=== PATIENT | female | born 1995 | race Caucasian/White ===

== ENCOUNTER 2017-07-28 00:44 | Emergency (ER) | payer SELFPAY ==
[~2017-07-28] VITALS: Ht 170.2 cm; Wt 88.0 kg
[2017-07-28 00:50] VITALS: BP 135/64
[2017-07-28 02:50] LABS: Urine Bilirubin Negative (Negative); Urine Blood Negative /uL (Negative); Urine Color Yellow (Yellow); Urine Glucose Normal (Normal); Urine Ketone 2+ (Negative); Urine Mucus FEW (None Seen); Urine Nitrite Negative (Negative); Urine RBC 2 /hpf (0 - 4); Urine Squamous Epithelial Cell FEW /hpf (<5); Urine pH 6.5 (5.0-8.0)
== END 2017-07-28 03:35 | disposition home or self-care (01) ==
LOC: EDBD 00:44 → ER 00:48
DX: S16.1XXA Strain of muscle, fascia and tendon at neck level, initial encounter (principal); S00.83XA Contusion of other part of head, initial encounter; S00.03XA Contusion of scalp, initial encounter; N39.0 Urinary tract infection, site not specified; Z32.01 Encounter for pregnancy test, result positive; Y08.89XA Assault by other specified means, initial encounter; Y93.89 Activity, other specified; Y99.8 Other external cause status; Y92.89 Other specified places as the place of occurrence of the external cause
CPT/HCPCS: 81001; 81025

== ENCOUNTER 2018-01-21 00:44 | Emergency (ER) | payer MEDICAID ==
[~2018-01-21] VITALS: Ht 157.5 cm; Wt 77.1 kg
[2018-01-21 02:05] LABS: Basophils # (auto) 0 uL; Basophils % (auto) 0.3 % (0.0-2.0); Eosinophils # (auto) 0.1 uL; Eosinophils % (auto) 0.7 % (0.0-7.0); Hematocrit 33.7 % (36.0-46.0); Hemoglobin 11.6 g/dL (12.2-16.2); Lymphocytes # (auto) 1.4 uL; Lymphocytes % (auto) 19.6 % (10.0-50.0); Mean Corpuscular Hemoglobin 31.6 pg (28.0-32.0); Mean Corpuscular Hgb Conc. 34.3 g/dL (32.0-36.0); Mean Corpuscular Volume 92.2 fL (80.0-100.0); Monocytes # (auto) 0.7 uL; Monocytes % (auto) 10.1 % (0.0-12.0); Neutrophils # (auto) 4.9 uL; Neutrophils % (auto) 69.3 % (37.0-80.0); Platelet Count (auto) 234 10^3/uL (140-450); Red Blood Cells 3.66 10^6/uL (4.0-5.20); Red Cell Distribution Width 13.7 % (11.8-14.3); White Blood Cell 7.1 10^3/uL (4.4-10.8)
[2018-01-21 02:40] LABS: Alanine Aminotransferase 13 U/L (13-56); Albumin 2.8 g/dL (3.4-5.0); Anion Gap 7 (5-15); Aspartate Aminotransferase 16 U/L (15-37); BUN/Creatinine Ratio 6.4; Blood Urea Nitrogen 3 mg/dL (7-18); Calcium 8.1 mg/dL (8.5-10.1); Carbon Dioxide 25 mmol/L (21-32); Chloride 108 mmol/L (98-107); GFR African American 217 mL/min; GFR Non-African American 180 mL/min; Glucose 86 mg/dL (74-106); Potassium 3.7 mmol/L (3.5-5.1); Sodium 140 mmol/L (136-145)
[2018-01-21 02:45] LABS: Alkaline Phosphatase 89 U/L (45-117); Bilirubin, Total 0.2 mg/dL (0.2-1.0); Total Protein 6.5 g/dL (6.4-8.2)
[2018-01-21 09:42] VITALS: BP 111/34
== END 2018-01-21 09:08 | disposition home or self-care (01) ==
LOC: EDBD 00:44 → ER 00:44 → EDUNIT# 00:44 → ER 09:08
DX: O26.893 Other specified pregnancy related conditions, third trimester (principal); R07.89 Other chest pain; Z3A.31 31 weeks gestation of pregnancy
CPT/HCPCS: 36415; 76805; 80053; 83735; 84484; 84702; 85025; 93005

== ENCOUNTER 2018-02-20 23:48 | Emergency (ER) | payer MEDICAID ==
[~2018-02-20] VITALS: Ht 165.1 cm; Wt 77.1 kg
[2018-02-21 00:44] LABS: Basophils # (auto) 0 uL; Basophils % (auto) 0.1 % (0.0-2.0); Eosinophils # (auto) 0.1 uL; Eosinophils % (auto) 0.7 % (0.0-7.0); Hematocrit 32.4 % (36.0-46.0); Hemoglobin 11.2 g/dL (12.2-16.2); Lymphocytes # (auto) 1.4 uL; Lymphocytes % (auto) 19.6 % (10.0-50.0); Mean Corpuscular Hemoglobin 31.4 pg (28.0-32.0); Mean Corpuscular Hgb Conc. 34.6 g/dL (32.0-36.0); Mean Corpuscular Volume 90.8 fL (80.0-100.0); Monocytes # (auto) 0.8 uL; Monocytes % (auto) 11.3 % (0.0-12.0); Neutrophils % (auto) 68.3 % (37.0-80.0); Platelet Count (auto) 209 10^3/uL (140-450); Red Blood Cells 3.57 10^6/uL (4.0-5.20); Red Cell Distribution Width 13.6 % (11.8-14.3); White Blood Cell 7.3 10^3/uL (4.4-10.8)
[2018-02-21 01:01] LABS: Alanine Aminotransferase 13 U/L (13-56); Albumin 2.6 g/dL (3.4-5.0); Anion Gap 11 (5-15); Aspartate Aminotransferase 12 U/L (15-37); BUN/Creatinine Ratio 8.9; Blood Urea Nitrogen 4 mg/dL (7-18); Calcium 8.6 mg/dL (8.5-10.1); Carbon Dioxide 22 mmol/L (21-32); Chloride 105 mmol/L (98-107); GFR African American 228 mL/min; GFR Non-African American 189 mL/min; Glucose 92 mg/dL (74-106); Potassium 3.6 mmol/L (3.5-5.1); Sodium 138 mmol/L (136-145)
[2018-02-21 01:06] LABS: Alkaline Phosphatase 126 U/L (45-117); Bilirubin, Total 0.3 mg/dL (0.2-1.0); Total Protein 6.3 g/dL (6.4-8.2)
[2018-02-21 01:41] LABS: Urine Bacteria FEW /hpf (None Seen); Urine Blood Negative /uL (Negative); Urine Mucus FEW (None Seen); Urine Specific Gravity 1.007 (1.001-1.035); Urine WBC 1 /hpf (0 - 5)
[2018-02-21 01:50] LABS: Alcohol, Urine < 3.0 mg/dL (0-5); Amphetamine Screen, Urine NEGATIVE (NEGATIVE); Barbiturate Scree,Urine NEGATIVE (NEGATIVE); Benzodiazephine Screen, Urine NEGATIVE (NEGATIVE); Cocaine Screen, Urine NEGATIVE (NEGATIVE); Opiate Scree,Urine NEGATIVE (NEGATIVE); Phencyclidine Screen, Urine NEGATIVE (NEGATIVE)
[2018-02-21 02:43] LABS: Cannabinoid Screen, Urine POSITIVE (NEGATIVE)
[2018-02-21 07:12] VITALS: BP 109/59
== END 2018-02-21 11:26 | disposition home or self-care (01) ==
LOC: EDBD 23:48 → ER 23:53
DX: K80.20 Calculus of gallbladder without cholecystitis without obstruction (principal); O26.613 Liver and biliary tract disorders in pregnancy, third trimester; O99.613 Diseases of the digestive system complicating pregnancy, third trimester; O26.893 Other specified pregnancy related conditions, third trimester; K29.70 Gastritis, unspecified, without bleeding; F12.10 Cannabis abuse, uncomplicated; Z3A.34 34 weeks gestation of pregnancy
CPT/HCPCS: 36415; 76705; 76805; 80053; 80307; 81001; 84484; 84702; 85025; 93005

== ENCOUNTER 2018-03-16 05:03 | Observation (INO) | payer MEDICAID | END 2018-03-16 15:00 | disposition home or self-care (01) | DRG 566 | LOC: EDSTATUS 05:03 | PROVIDERS: ADMIT Obstetrics & Gynecology; ATTEND Obstetrics & Gynecology | DX: O26.893 Other specified pregnancy related conditions, third trimester (principal); R10.9 Unspecified abdominal pain; Z3A.36 36 weeks gestation of pregnancy | CPT/HCPCS: 59025; G0378 ==

== ENCOUNTER 2018-03-21 01:53 | Observation (INO) | payer MEDICAID ==
[~2018-03-21] VITALS: Ht 170.2 cm; Wt 88.0 kg
[2018-03-21] MEDS ORDERED: PREN-96 PO (04:15)
== END 2018-03-21 03:00 | disposition home or self-care (01) | DRG 566 ==
LOC: LDRP 01:53
PROVIDERS: ADMIT Obstetrics & Gynecology; ATTEND Obstetrics & Gynecology
DX: O26.893 Other specified pregnancy related conditions, third trimester (principal); M54.9 Dorsalgia, unspecified; Z3A.38 38 weeks gestation of pregnancy
CPT/HCPCS: 59025; G0378

== ENCOUNTER 2018-04-11 08:34 | Emergency (ER) | payer MEDICAID, OTHER ==
[~2018-04-11] VITALS: Ht 167.6 cm; Wt 97.5 kg
[2018-04-11] MEDS ORDERED: SODIUM CHLORIDE 0.9% 1,000 ML IVB ONE (09:02)
[2018-04-11 09:22] LABS: Basophils # (auto) 0.1 uL; Basophils % (auto) 0.8 % (0.0-2.0); Eosinophils # (auto) 0.2 uL; Eosinophils % (auto) 2.8 % (0.0-7.0); Hematocrit 39.1 % (36.0-46.0); Hemoglobin 13.4 g/dL (12.2-16.2); Lymphocytes # (auto) 1.7 uL; Lymphocytes % (auto) 25.6 % (10.0-50.0); Mean Corpuscular Hemoglobin 30.2 pg (28.0-32.0); Mean Corpuscular Hgb Conc. 34.3 g/dL (32.0-36.0); Monocytes # (auto) 0.8 uL; Monocytes % (auto) 12.5 % (0.0-12.0); Neutrophils # (auto) 3.9 uL; Neutrophils % (auto) 58.3 % (37.0-80.0); Nucleated Red Blood Cells % 0.1 %; Platelet Count (auto) 289 10^3/uL (140-450); Red Blood Cells 4.44 10^6/uL (4.0-5.20); Red Cell Distribution Width 13.7 % (11.8-14.3); White Blood Cell 6.6 10^3/uL (4.4-10.8)
[2018-04-11 09:40] LABS: Alanine Aminotransferase 31 U/L (13-56); Albumin 3.4 g/dL (3.4-5.0); Alkaline Phosphatase 129 U/L (45-117); Anion Gap 9 (5-15); Aspartate Aminotransferase 16 U/L (15-37); BUN/Creatinine Ratio 10.7; Bilirubin, Total 0.3 mg/dL (0.2-1.0); Blood Urea Nitrogen 8 mg/dL (7-18); Calcium 8.2 mg/dL (8.5-10.1); Carbon Dioxide 26 mmol/L (21-32); Chloride 104 mmol/L (98-107); GFR African American 127 mL/min; GFR Non-African American 105 mL/min; Glucose 78 mg/dL (74-106); Magnesium 2.4 mg/dL (1.6-2.6); Potassium 3.7 mmol/L (3.5-5.1); Sodium 139 mmol/L (136-145); Total Protein 7.2 g/dL (6.4-8.2)
[2018-04-11 09:46] LABS: Beta HCG, Quantitative < 1 mlU/mL (1-3)
[2018-04-11 10:46] LABS: Lipase 110 U/L (73-393)
[2018-04-11 16:16] LABS: Urine Bacteria NONE SEEN /hpf (None Seen); Urine Blood TRACE /uL (Negative); Urine Specific Gravity 1.009 (1.001-1.035); Urine WBC 14 /hpf (0 - 5)
[2018-04-11] MEDS ORDERED: cefTRIAXone 1GM/10ml IVPUSH 10 ML IV ONE (17:00)
[2018-04-11 18:00] VITALS: BP 116/66
== END 2018-04-11 18:05 | disposition home or self-care (01) ==
LOC: ER 08:34 → EDBD 08:34 → ER 18:05
DX: N39.0 Urinary tract infection, site not specified (principal); R53.1 Weakness
CPT/HCPCS: 36415; 74176; 76536; 80053; 81001; 83690; 83735; 84443; 84484; 84702; 85025; 93005; 94761; 96361; 96374; 99285; J7030

== ENCOUNTER 2018-04-11 22:43 | Emergency (ER) | payer OTHER ==
[~2018-04-11] VITALS: Ht 170.2 cm; Wt 90.7 kg
[2018-04-11 23:02] VITALS: BP 106/54
[2018-04-12] MEDS ORDERED: diphenhdrAMINE HCL 25 MG CAP PO ONE (00:30)
[2018-04-12] MEDS ORDERED: KETOROLAC TROMETH 60MG/2ML VIAL IM ONE (00:30)
[2018-04-12] MEDS ORDERED: PROMETHAZINE HCL 25 MG/ML 1ML IM ONE (00:30)
== END 2018-04-12 01:57 | disposition home or self-care (01) ==
LOC: ER 22:44
DX: R51 Headache (principal)
CPT/HCPCS: 70450

== ENCOUNTER 2018-05-12 09:09 | Emergency (ER) | payer MEDICAID, OTHER ==
[~2018-05-12] VITALS: Ht 167.6 cm; Wt 93.9 kg
[2018-05-12 09:53] LABS: Basophils # (auto) 0 uL; Basophils % (auto) 0.5 % (0.0-2.0); Eosinophils # (auto) 0.1 uL; Eosinophils % (auto) 1.4 % (0.0-7.0); Hematocrit 38.7 % (36.0-46.0); Hemoglobin 13.4 g/dL (12.2-16.2); Lymphocytes # (auto) 0.9 uL; Lymphocytes % (auto) 24.2 % (10.0-50.0); Mean Corpuscular Hemoglobin 30.6 pg (28.0-32.0); Mean Corpuscular Hgb Conc. 34.7 g/dL (32.0-36.0); Mean Corpuscular Volume 88.2 fL (80.0-100.0); Monocytes # (auto) 0.4 uL; Monocytes % (auto) 10.4 % (0.0-12.0); Neutrophils # (auto) 2.4 uL; Neutrophils % (auto) 63.5 % (37.0-80.0); Platelet Count (auto) 240 10^3/uL (140-450); Red Blood Cells 4.39 10^6/uL (4.0-5.20); Red Cell Distribution Width 13.9 % (11.8-14.3); White Blood Cell 3.8 10^3/uL (4.4-10.8)
[2018-05-12 10:03] VITALS: BP 152/64
[2018-05-12 10:14] LABS: Albumin 3.9 g/dL (3.4-5.0); BUN/Creatinine Ratio 4.7; Calcium 8.2 mg/dL (8.5-10.1); Potassium 3.2 mmol/L (3.5-5.1); Total Protein 7.2 g/dL (6.4-8.2)
[2018-05-12 10:15] LABS: Urine Pregnacy Test Negative (Negative)
[2018-05-12 10:26] LABS: Urine Bacteria FEW /hpf (None Seen); Urine Blood Negative /uL (Negative); Urine Mucus FEW (None Seen); Urine Specific Gravity 1.013 (1.001-1.035); Urine WBC 2 /hpf (0 - 5)
[2018-05-12 10:28] LABS: Alcohol, Urine < 3.0 mg/dL (0-5); Amphetamine Screen, Urine NEGATIVE (NEGATIVE); Barbiturate Scree,Urine NEGATIVE (NEGATIVE); Benzodiazephine Screen, Urine NEGATIVE (NEGATIVE); Cannabinoid Screen, Urine NEGATIVE (NEGATIVE); Cocaine Screen, Urine NEGATIVE (NEGATIVE); Opiate Scree,Urine NEGATIVE (NEGATIVE); Phencyclidine Screen, Urine NEGATIVE (NEGATIVE)
[2018-05-12] MEDS ORDERED: DONNATAL 5ml ORAL Elix (BELLADONNA ALK-PHENOBARB) PO ONE (10:30)
[2018-05-12] MEDS ORDERED: ALUM & MAG HYDROX-SIMETH LIQ(MAALOX) 30 ML PO ONE (10:30)
[2018-05-12] MEDS ORDERED: LIDOCAINE VISCOUS 2% 15ML UD PO ONE (10:30)
== END 2018-05-12 12:04 | disposition home or self-care (01) ==
LOC: ER 09:12
DX: R10.13 Epigastric pain (principal); R11.2 Nausea with vomiting, unspecified; R19.7 Diarrhea, unspecified
CPT/HCPCS: 36415; 80053; 80307; 81001; 81025; 85025

== ENCOUNTER 2018-05-18 03:47 | Emergency (ER) | payer MEDICAID, OTHER ==
[~2018-05-18] VITALS: Ht 177.8 cm; Wt 99.8 kg
[2018-05-18 03:57] VITALS: BP 127/81
[2018-05-18 04:19] LABS: Basophils # (auto) 0 uL; Basophils % (auto) 0.5 % (0.0-2.0); Eosinophils # (auto) 0.1 uL; Eosinophils % (auto) 2.4 % (0.0-7.0); Hematocrit 36.5 % (36.0-46.0); Hemoglobin 12.5 g/dL (12.2-16.2); Lymphocytes # (auto) 1.6 uL; Lymphocytes % (auto) 37.3 % (10.0-50.0); Mean Corpuscular Hemoglobin 30.3 pg (28.0-32.0); Mean Corpuscular Hgb Conc. 34.3 g/dL (32.0-36.0); Mean Corpuscular Volume 88.4 fL (80.0-100.0); Monocytes # (auto) 0.7 uL; Monocytes % (auto) 15.7 % (0.0-12.0); Neutrophils # (auto) 1.9 uL; Neutrophils % (auto) 44.1 % (37.0-80.0); Nucleated Red Blood Cells % 0.1 %; Platelet Count (auto) 214 10^3/uL (140-450); Red Blood Cells 4.13 10^6/uL (4.0-5.20); Red Cell Distribution Width 13.6 % (11.8-14.3); White Blood Cell 4.3 10^3/uL (4.4-10.8)
[2018-05-18 04:48] LABS: Albumin 3.5 g/dL (3.4-5.0); BUN/Creatinine Ratio 4.5; Potassium 3.2 mmol/L (3.5-5.1); Total Protein 6.4 g/dL (6.4-8.2)
[2018-05-18 04:54] LABS: Bilirubin, Total 1.1 mg/dL (0.2-1.0)
[2018-05-18] MEDS ORDERED: POTASSIUM EFFERVESENT TAB 25 MEQ PO ONE (05:45)
== END 2018-05-18 06:09 | disposition home or self-care (01) ==
LOC: EDBD 03:47 → ER 03:51
DX: E87.6 Hypokalemia (principal)
CPT/HCPCS: 36415; 80053; 82150; 83690; 84702; 85025

== ENCOUNTER 2018-05-23 02:27 | Emergency (ER) | payer MEDICAID, OTHER ==
[~2018-05-23] VITALS: Ht 165.1 cm; Wt 92.5 kg
[2018-05-23] MEDS ORDERED: SODIUM CHLORIDE 0.9% 1,000 ML IV ONE (08:04)
[2018-05-23] MEDS ORDERED: KETOROLAC TROMETH 30 MG/ML 1ML VIAL IV ONE (08:15)
[2018-05-23 08:23] LABS: Urine WBC None Seen /hpf (0 - 5)
[2018-05-23 08:34] LABS: Urine Bacteria NONE SEEN /hpf (None Seen); Urine Blood Negative /uL (Negative); Urine Specific Gravity 1.009 (1.001-1.035)
[2018-05-23 08:35] LABS: Basophils # (auto) 0 uL; Basophils % (auto) 0.7 % (0.0-2.0); Eosinophils # (auto) 0.1 uL; Eosinophils % (auto) 2.4 % (0.0-7.0); Hematocrit 38.4 % (36.0-46.0); Hemoglobin 12.8 g/dL (12.2-16.2); Lymphocytes # (auto) 1.5 uL; Mean Corpuscular Hemoglobin 29.2 pg (28.0-32.0); Mean Corpuscular Hgb Conc. 33.3 g/dL (32.0-36.0); Mean Corpuscular Volume 87.7 fL (80.0-100.0); Monocytes # (auto) 0.6 uL; Monocytes % (auto) 13.8 % (0.0-12.0); Neutrophils # (auto) 2.2 uL; Neutrophils % (auto) 50.1 % (37.0-80.0); Nucleated Red Blood Cells % 0.1 %; Platelet Count (auto) 210 10^3/uL (140-450); Red Blood Cells 4.38 10^6/uL (4.0-5.20); Red Cell Distribution Width 13.7 % (11.8-14.3); White Blood Cell 4.4 10^3/uL (4.4-10.8)
[2018-05-23 08:53] LABS: BUN/Creatinine Ratio 9.6; Calcium 8.3 mg/dL (8.5-10.1); Potassium 3.4 mmol/L (3.5-5.1)
[2018-05-23 10:07] VITALS: BP 133/77
== END 2018-05-23 11:31 | disposition home or self-care (01) ==
LOC: ER 02:27
DX: M62.838 Other muscle spasm (principal); M54.9 Dorsalgia, unspecified; E87.6 Hypokalemia
CPT/HCPCS: 36415; 80048; 81001; 83735; 84702; 85025; 96374; 99284; J1885; J7030; 96361

== ENCOUNTER 2018-05-25 01:16 | Emergency (ER) | payer MEDICAID, OTHER ==
[~2018-05-25] VITALS: Ht 172.7 cm; Wt 99.8 kg
[2018-05-25 08:00] VITALS: BP 123/61
== END 2018-05-25 08:00 | disposition home or self-care (01) ==
LOC: EDBD 01:16 → ER 01:22
DX: K29.70 Gastritis, unspecified, without bleeding (principal)

== ENCOUNTER 2018-06-26 09:12 | Emergency (ER) | payer MEDICAID ==
[~2018-06-26] VITALS: Ht 167.6 cm; Wt 90.7 kg
[2018-06-26 09:35] VITALS: BP 122/74
[2018-06-26] MEDS ORDERED: NALBUPHINE HCL 10 MG/1ml INJECTION IM ONE (10:00)
== END 2018-06-26 10:40 | disposition home or self-care (01) ==
LOC: EDBD 09:12 → EDUNIT# 09:12 → ER 09:12
DX: S39.012A Strain of muscle, fascia and tendon of lower back, initial encounter (principal); Y08.89XA Assault by other specified means, initial encounter; Y93.89 Activity, other specified; Y92.89 Other specified places as the place of occurrence of the external cause; Y99.8 Other external cause status
CPT/HCPCS: 72100; 81025; 96372; 99284; J2300

== ENCOUNTER 2018-06-26 21:39 | Emergency (ER) | payer MEDICAID ==
[~2018-06-26] VITALS: Ht 170.2 cm; Wt 81.6 kg
[2018-06-26 22:00] VITALS: BP 120/85
== END 2018-06-27 05:11 | disposition left against medical advice (07) ==
LOC: EDBD 21:39 → ER 21:39
DX: F32.9 Major depressive disorder, single episode, unspecified (principal); Z53.21 Procedure and treatment not carried out due to patient leaving prior to being seen by health care provider

== ENCOUNTER 2018-06-27 19:50 | Emergency (ER) | payer MEDICAID ==
[~2018-06-27] VITALS: Ht 167.6 cm; Wt 92.5 kg
[2018-06-27 20:59] LABS: Urine Bacteria NONE SEEN /hpf (None Seen); Urine Blood Negative /uL (Negative); Urine Specific Gravity 1.001 (1.001-1.035); Urine WBC <1 /hpf (0 - 5)
[2018-06-27 21:08] LABS: Basophils # (auto) 0 uL; Basophils % (auto) 0.7 % (0.0-2.0); Eosinophils # (auto) 0.1 uL; Eosinophils % (auto) 2.5 % (0.0-7.0); Hematocrit 37.1 % (36.0-46.0); Hemoglobin 12.5 g/dL (12.2-16.2); Lymphocytes # (auto) 1.6 uL; Lymphocytes % (auto) 35.5 % (10.0-50.0); Mean Corpuscular Hemoglobin 29.9 pg (28.0-32.0); Mean Corpuscular Hgb Conc. 33.6 g/dL (32.0-36.0); Monocytes # (auto) 0.6 uL; Monocytes % (auto) 12.7 % (0.0-12.0); Neutrophils # (auto) 2.2 uL; Neutrophils % (auto) 48.6 % (37.0-80.0); Nucleated Red Blood Cells % 0.2 %; Platelet Count (auto) 235 10^3/uL (140-450); Red Blood Cells 4.18 10^6/uL (4.0-5.20); Red Cell Distribution Width 13.4 % (11.8-14.3); White Blood Cell 4.6 10^3/uL (4.4-10.8)
[2018-06-27 21:25] LABS: Albumin 3.6 g/dL (3.4-5.0); BUN/Creatinine Ratio 5.6; Bilirubin, Total 0.7 mg/dL (0.2-1.0); Calcium 8.6 mg/dL (8.5-10.1); Potassium 3.4 mmol/L (3.5-5.1)
[2018-06-28 06:30] VITALS: BP 101/59
[2018-06-28] MEDS ORDERED: POTASSIUM EFFERVESENT TAB 25 MEQ PO ONE (06:45)
== END 2018-06-28 06:59 | disposition home or self-care (01) ==
LOC: ER 19:50
DX: E87.6 Hypokalemia (principal); Z59.0 Homelessness
CPT/HCPCS: 36415; 80053; 81001; 81025; 82150; 83690; 83735; 85025

== ENCOUNTER 2018-07-03 08:14 | Emergency (ER) | payer MEDICAID ==
[~2018-07-03] VITALS: Ht 167.6 cm; Wt 90.3 kg
[2018-07-03 08:32] VITALS: BP 120/69
== END 2018-07-03 09:09 | disposition home or self-care (01) ==
LOC: ER 08:14
DX: N39.0 Urinary tract infection, site not specified (principal); Z59.0 Homelessness

== ENCOUNTER 2018-07-11 19:42 | Emergency (ER) | payer MEDICAID ==
[~2018-07-11] VITALS: Ht 170.2 cm; Wt 90.3 kg
[2018-07-11 19:57] VITALS: BP 111/55
[2018-07-11 20:08] LABS: Urine WBC None Seen /hpf (0 - 5)
[2018-07-11 20:22] LABS: Urine Bacteria NONE SEEN /hpf (None Seen); Urine Blood Negative /uL (Negative); Urine Pregnacy Test Negative (Negative); Urine Specific Gravity 1.002 (1.001-1.035)
[2018-07-11 20:33] LABS: Alcohol, Urine < 3.0 mg/dL (0-5); Amphetamine Screen, Urine NEGATIVE (NEGATIVE); Barbiturate Scree,Urine NEGATIVE (NEGATIVE); Benzodiazephine Screen, Urine NEGATIVE (NEGATIVE); Cannabinoid Screen, Urine NEGATIVE (NEGATIVE); Cocaine Screen, Urine NEGATIVE (NEGATIVE); Opiate Scree,Urine NEGATIVE (NEGATIVE); Phencyclidine Screen, Urine NEGATIVE (NEGATIVE)
[2018-07-11] MEDS ORDERED: methylPREDNISolone SOD SUCC 125 MG/2 ML VL IM ONE (21:15)
[2018-07-11] MEDS ORDERED: KETOROLAC TROMETH 60MG/2ML VIAL IM ONE (21:15)
== END 2018-07-11 22:21 | disposition home or self-care (01) ==
LOC: ER 19:42
DX: S23.3XXA Sprain of ligaments of thoracic spine, initial encounter (principal); W01.0XXA Fall on same level from slipping, tripping and stumbling without subsequent striking against object, initial encounter; Y93.89 Activity, other specified; Y99.8 Other external cause status; Y92.89 Other specified places as the place of occurrence of the external cause
CPT/HCPCS: 72100; 80307; 81001; 81025; 96372; 99285; J1885; J2930

== ENCOUNTER 2018-07-21 22:16 | Emergency (ER) | payer MEDICAID ==
[~2018-07-21] VITALS: Ht 162.6 cm; Wt 72.6 kg
[2018-07-22 00:50] VITALS: BP 122/42
[2018-07-22] MEDS: MECLIZINE HCL 25 MG TAB PO ONE (01:21)
== END 2018-07-22 01:57 | disposition home or self-care (01) ==
LOC: EDBD 22:16 → ER 22:22
DX: R42 Dizziness and giddiness (principal); R53.1 Weakness
CPT/HCPCS: 99282; J8597

== ENCOUNTER 2018-08-08 23:39 | Emergency (ER) | payer MEDICAID ==
[~2018-08-08] VITALS: Ht 157.5 cm; Wt 95.3 kg
[2018-08-08 23:48] VITALS: BP 124/80
== END 2018-08-09 05:31 | disposition home or self-care (01) ==
LOC: ER 23:39 → EDBD 23:39 → ER 08-09 05:31
DX: S43.402A Unspecified sprain of left shoulder joint, initial encounter (principal); W22.8XXA Striking against or struck by other objects, initial encounter; Y93.89 Activity, other specified; Y99.8 Other external cause status; Y92.89 Other specified places as the place of occurrence of the external cause
CPT/HCPCS: 73030

== ENCOUNTER 2018-08-16 21:46 | Emergency (ER) | payer MEDICAID ==
[~2018-08-16] VITALS: Ht 157.5 cm; Wt 90.7 kg
[2018-08-16 21:58] VITALS: BP 136/82
[2018-08-16 22:21] LABS: Basophils # (auto) 0 uL; Basophils % (auto) 0.3 % (0.0-2.0); Eosinophils # (auto) 0.1 uL; Eosinophils % (auto) 1.4 % (0.0-7.0); Hemoglobin 13.4 g/dL (12.2-16.2); Lymphocytes # (auto) 1.7 uL; Lymphocytes % (auto) 24.3 % (10.0-50.0); Mean Corpuscular Hemoglobin 29.3 pg (28.0-32.0); Mean Corpuscular Hgb Conc. 33.4 g/dL (32.0-36.0); Mean Corpuscular Volume 87.9 fL (80.0-100.0); Monocytes # (auto) 0.6 uL; Neutrophils # (auto) 4.6 uL; Platelet Count (auto) 263 10^3/uL (140-450); Red Blood Cells 4.56 10^6/uL (4.0-5.20); Red Cell Distribution Width 13.5 % (11.8-14.3); White Blood Cell 7.1 10^3/uL (4.4-10.8)
[2018-08-16 22:41] LABS: Albumin 3.9 g/dL (3.4-5.0); BUN/Creatinine Ratio 8.1; Calcium 8.4 mg/dL (8.5-10.1); Potassium 3.6 mmol/L (3.5-5.1)
[2018-08-16 22:43] LABS: Bilirubin, Total 0.6 mg/dL (0.2-1.0); Total Protein 7.6 g/dL (6.4-8.2)
== END 2018-08-17 | disposition left against medical advice (07) ==
LOC: EDBD 21:46 → ER 21:46
DX: R06.02 Shortness of breath (principal); Z53.21 Procedure and treatment not carried out due to patient leaving prior to being seen by health care provider
CPT/HCPCS: 36415; 71046; 80053; 85025

== ENCOUNTER 2018-08-30 01:39 | Emergency (ER) | payer MEDICAID ==
[~2018-08-30] VITALS: Ht 167.6 cm; Wt 77.1 kg
[2018-08-30 01:45] VITALS: BP 115/76
== END 2018-08-30 03:55 | disposition home or self-care (01) ==
LOC: EDBD 01:39 → ER 01:46
DX: M54.9 Dorsalgia, unspecified (principal); M62.838 Other muscle spasm

== ENCOUNTER 2018-09-12 22:56 | Emergency (ER) | payer MEDICAID ==
[~2018-09-12] VITALS: Ht 165.1 cm; Wt 81.6 kg
[2018-09-12 23:03] VITALS: BP 112/58
[2018-09-13 00:01] LABS: Urine Bacteria MANY /hpf (None Seen); Urine Blood Negative /uL (Negative); Urine Mucus FEW (None Seen); Urine Specific Gravity 1.022 (1.001-1.035); Urine WBC 40 /hpf (0 - 5)
[2018-09-13 01:33] LABS: Basophils # (auto) 0 uL; Basophils % (auto) 0.4 % (0.0-2.0); Eosinophils # (auto) 0.1 uL; Eosinophils % (auto) 2.3 % (0.0-7.0); Hematocrit 37.2 % (36.0-46.0); Hemoglobin 12.3 g/dL (12.2-16.2); Lymphocytes # (auto) 2.1 uL; Mean Corpuscular Hemoglobin 29.1 pg (28.0-32.0); Mean Corpuscular Hgb Conc. 33.2 g/dL (32.0-36.0); Mean Corpuscular Volume 87.8 fL (80.0-100.0); Monocytes # (auto) 0.6 uL; Monocytes % (auto) 11.1 % (0.0-12.0); Neutrophils # (auto) 2.9 uL; Neutrophils % (auto) 50.2 % (37.0-80.0); Nucleated Red Blood Cells % 0.1 %; Platelet Count (auto) 258 10^3/uL (140-450); Red Blood Cells 4.24 10^6/uL (4.0-5.20); Red Cell Distribution Width 14.1 % (11.8-14.3); White Blood Cell 5.8 10^3/uL (4.4-10.8)
[2018-09-13 01:52] LABS: Albumin 3.4 g/dL (3.4-5.0); BUN/Creatinine Ratio 12.5; Calcium 7.9 mg/dL (8.5-10.1); Potassium 3.9 mmol/L (3.5-5.1)
[2018-09-13 01:55] LABS: Alcohol, Urine < 3.0 mg/dL (0-5); Amphetamine Screen, Urine NEGATIVE (NEGATIVE); Barbiturate Scree,Urine NEGATIVE (NEGATIVE); Benzodiazephine Screen, Urine NEGATIVE (NEGATIVE); Cannabinoid Screen, Urine POSITIVE (NEGATIVE); Cocaine Screen, Urine NEGATIVE (NEGATIVE); Opiate Scree,Urine NEGATIVE (NEGATIVE); Phencyclidine Screen, Urine NEGATIVE (NEGATIVE)
[2018-09-13 01:55] LABS: Bilirubin, Total 0.4 mg/dL (0.2-1.0); Total Protein 6.7 g/dL (6.4-8.2)
[2018-09-13] MEDS ORDERED: SODIUM CHLORIDE 0.9% 1,000 ML IV ONE (02:45)
== END 2018-09-13 04:49 | disposition home or self-care (01) ==
LOC: EDBD 22:56 → ER 23:01
DX: O23.41 Unspecified infection of urinary tract in pregnancy, first trimester (principal); O21.9 Vomiting of pregnancy, unspecified; N83.01 Follicular cyst of right ovary; N83.02 Follicular cyst of left ovary; Z3A.00 Weeks of gestation of pregnancy not specified
CPT/HCPCS: 36415; 76801; 80053; 80307; 81001; 81025; 84702; 85025; 96360; 99284; J7030

== ENCOUNTER 2018-09-18 15:33 | Emergency (ER) | payer MEDICAID ==
[~2018-09-18] VITALS: Ht 170.2 cm; Wt 72.6 kg
[2018-09-18 16:18] LABS: Basophils # (auto) 0 uL; Basophils % (auto) 0.4 % (0.0-2.0); Eosinophils # (auto) 0.1 uL; Eosinophils % (auto) 0.9 % (0.0-7.0); Hematocrit 36.7 % (36.0-46.0); Hemoglobin 12.5 g/dL (12.2-16.2); Lymphocytes # (auto) 1.4 uL; Lymphocytes % (auto) 23.5 % (10.0-50.0); Mean Corpuscular Hgb Conc. 33.9 g/dL (32.0-36.0); Mean Corpuscular Volume 88.4 fL (80.0-100.0); Monocytes # (auto) 0.7 uL; Monocytes % (auto) 11.3 % (0.0-12.0); Neutrophils # (auto) 3.9 uL; Neutrophils % (auto) 63.9 % (37.0-80.0); Nucleated Red Blood Cells % 0.1 %; Platelet Count (auto) 242 10^3/uL (140-450); Red Blood Cells 4.16 10^6/uL (4.0-5.20); Red Cell Distribution Width 14.3 % (11.8-14.3)
[2018-09-18 16:40] LABS: Albumin 3.6 g/dL (3.4-5.0); BUN/Creatinine Ratio 10.3; Calcium 8.3 mg/dL (8.5-10.1); Potassium 4.1 mmol/L (3.5-5.1)
[2018-09-18 16:43] LABS: Bilirubin, Total 0.3 mg/dL (0.2-1.0); Total Protein 6.8 g/dL (6.4-8.2)
[2018-09-18] MEDS ORDERED: ONDANSETRON HCL 4 MG/2 ML VIAL IV ONE (23:30)
[2018-09-18] MEDS ORDERED: SODIUM CHLORIDE 0.9% 1,000 ML IV ONE (23:30)
[2018-09-19 00:21] VITALS: BP 88/54
== END 2018-09-19 00:57 | disposition home or self-care (01) ==
LOC: EDBD 15:33 → ER 15:38
DX: O21.0 Mild hyperemesis gravidarum (principal); Z3A.01 Less than 8 weeks gestation of pregnancy
CPT/HCPCS: 36415; 80053; 81025; 84702; 85025; 96361; 96374; 99283; J2405; J7030

== ENCOUNTER 2018-09-19 02:26 | Emergency (ER) | payer MEDICAID ==
[~2018-09-19] VITALS: Ht 170.2 cm; Wt 81.6 kg
[2018-09-19 03:02] LABS: Basophils # (auto) 0 uL; Basophils % (auto) 0.6 % (0.0-2.0); Eosinophils # (auto) 0.1 uL; Eosinophils % (auto) 1.7 % (0.0-7.0); Hematocrit 36.7 % (36.0-46.0); Hemoglobin 12.3 g/dL (12.2-16.2); Lymphocytes % (auto) 33.9 % (10.0-50.0); Mean Corpuscular Hemoglobin 29.7 pg (28.0-32.0); Mean Corpuscular Hgb Conc. 33.5 g/dL (32.0-36.0); Mean Corpuscular Volume 88.8 fL (80.0-100.0); Monocytes # (auto) 0.7 uL; Monocytes % (auto) 12.3 % (0.0-12.0); Neutrophils % (auto) 51.5 % (37.0-80.0); Nucleated Red Blood Cells % 0.1 %; Platelet Count (auto) 234 10^3/uL (140-450); Red Blood Cells 4.13 10^6/uL (4.0-5.20); Red Cell Distribution Width 14.5 % (11.8-14.3); White Blood Cell 5.8 10^3/uL (4.4-10.8)
[2018-09-19 03:18] LABS: Alanine Aminotransferase 26 U/L (13-56); Albumin 3.3 g/dL (3.4-5.0); Anion Gap 9 (5-15); Aspartate Aminotransferase 12 U/L (15-37); BUN/Creatinine Ratio 11.1; Blood Alcohol < 3.0 mg/dL (0-5); Blood Urea Nitrogen 8 mg/dL (7-18); Calcium 7.7 mg/dL (8.5-10.1); Carbon Dioxide 20 mmol/L (21-32); Chloride 110 mmol/L (98-107); GFR African American 132 mL/min; GFR Non-African American 109 mL/min; Glucose 89 mg/dL (74-106); Potassium 3.9 mmol/L (3.5-5.1); Sodium 139 mmol/L (136-145)
[2018-09-19 03:20] LABS: Acetaminophen < 2.0 ug/mL (10-30); Salicylate < 1.7 mg/dL (2.8-20.0)
[2018-09-19 03:21] LABS: Alkaline Phosphatase 87 U/L (45-117); Bilirubin, Total 0.2 mg/dL (0.2-1.0); Total Protein 6.4 g/dL (6.4-8.2)
[2018-09-19 06:31] LABS: Urine Bacteria NONE SEEN /hpf (None Seen); Urine Blood Negative /uL (Negative); Urine Mucus FEW (None Seen); Urine Specific Gravity 1.012 (1.001-1.035); Urine WBC 1 /hpf (0 - 5)
[2018-09-19 07:09] LABS: Alcohol, Urine < 3.0 mg/dL (0-5); Amphetamine Screen, Urine NEGATIVE (NEGATIVE); Barbiturate Scree,Urine NEGATIVE (NEGATIVE); Benzodiazephine Screen, Urine NEGATIVE (NEGATIVE); Cannabinoid Screen, Urine NEGATIVE (NEGATIVE); Cocaine Screen, Urine NEGATIVE (NEGATIVE); Opiate Scree,Urine NEGATIVE (NEGATIVE); Phencyclidine Screen, Urine NEGATIVE (NEGATIVE)
[2018-09-19 11:27] VITALS: BP 103/41
== END 2018-09-19 11:50 | disposition short-term general hospital (02) ==
LOC: ER 02:26
DX: O99.341 Other mental disorders complicating pregnancy, first trimester (principal); F32.9 Major depressive disorder, single episode, unspecified; R45.851 Suicidal ideations; Z3A.01 Less than 8 weeks gestation of pregnancy
CPT/HCPCS: 36415; 80053; 80307; 80320; 80329; 81001; 85025; 93005

== ENCOUNTER 2018-09-27 03:22 | Emergency (ER) | payer MEDICAID ==
[~2018-09-27] VITALS: Ht 167.6 cm; Wt 77.1 kg
[2018-09-27 07:38] VITALS: BP 108/65
== END 2018-09-27 09:23 | disposition home or self-care (01) ==
LOC: EDBD 03:22 → ER 03:29
DX: O26.891 Other specified pregnancy related conditions, first trimester (principal); R10.13 Epigastric pain; Z3A.01 Less than 8 weeks gestation of pregnancy
CPT/HCPCS: 36415; 84702

== ENCOUNTER 2018-10-04 23:56 | Emergency (ER) | payer MEDICAID ==
[~2018-10-04] VITALS: Ht 167.6 cm; Wt 59.0 kg
[2018-10-05 02:11] LABS: Basophils # (auto) 0 uL; Basophils % (auto) 0.4 % (0.0-2.0); Eosinophils # (auto) 0.1 uL; Eosinophils % (auto) 1.3 % (0.0-7.0); Hematocrit 37.4 % (36.0-46.0); Hemoglobin 12.6 g/dL (12.2-16.2); Lymphocytes # (auto) 1.6 uL; Lymphocytes % (auto) 25.6 % (10.0-50.0); Mean Corpuscular Hgb Conc. 33.6 g/dL (32.0-36.0); Mean Corpuscular Volume 89.2 fL (80.0-100.0); Monocytes # (auto) 0.6 uL; Monocytes % (auto) 9.6 % (0.0-12.0); Neutrophils % (auto) 63.1 % (37.0-80.0); Platelet Count (auto) 234 10^3/uL (140-450); Red Blood Cells 4.19 10^6/uL (4.0-5.20); Red Cell Distribution Width 14.4 % (11.8-14.3); White Blood Cell 6.3 10^3/uL (4.4-10.8)
[2018-10-05 02:32] LABS: Albumin 3.6 g/dL (3.4-5.0); BUN/Creatinine Ratio 15.5; Calcium 8.1 mg/dL (8.5-10.1); Potassium 3.9 mmol/L (3.5-5.1)
[2018-10-05 02:35] LABS: Bilirubin, Total 0.3 mg/dL (0.2-1.0); Total Protein 7.1 g/dL (6.4-8.2)
[2018-10-05 02:38] LABS: Urine Bacteria FEW /hpf (None Seen); Urine Blood 2+ /uL (Negative); Urine Mucus FEW (None Seen); Urine Specific Gravity 1.024 (1.001-1.035); Urine WBC 2 /hpf (0 - 5)
[2018-10-05 12:07] VITALS: BP 109/65
== END 2018-10-05 15:48 | disposition left against medical advice (07) ==
LOC: ER 23:59
DX: O20.0 Threatened abortion (principal); O21.9 Vomiting of pregnancy, unspecified; Z3A.19 19 weeks gestation of pregnancy
CPT/HCPCS: 36415; 76801; 76817; 80053; 81001; 84702; 85025

== ENCOUNTER 2018-10-12 01:52 | Emergency (ER) | payer MEDICAID ==
[~2018-10-12] VITALS: Ht 175.3 cm; Wt 81.6 kg
[2018-10-12 02:27] VITALS: BP 112/63
[2018-10-12 12:29] LABS: Basophils # (auto) 0 uL; Basophils % (auto) 0.5 % (0.0-2.0); Eosinophils # (auto) 0.1 uL; Eosinophils % (auto) 1.8 % (0.0-7.0); Hematocrit 38.5 % (36.0-46.0); Hemoglobin 12.8 g/dL (12.2-16.2); Lymphocytes # (auto) 1.1 uL; Lymphocytes % (auto) 23.1 % (10.0-50.0); Mean Corpuscular Hgb Conc. 33.3 g/dL (32.0-36.0); Mean Corpuscular Volume 90.1 fL (80.0-100.0); Monocytes # (auto) 0.5 uL; Monocytes % (auto) 10.1 % (0.0-12.0); Neutrophils # (auto) 3.2 uL; Neutrophils % (auto) 64.5 % (37.0-80.0); Platelet Count (auto) 269 10^3/uL (140-450); Red Blood Cells 4.27 10^6/uL (4.0-5.20); Red Cell Distribution Width 14.1 % (11.8-14.3)
[2018-10-12 13:06] LABS: BUN/Creatinine Ratio 8.8; Calcium 8.8 mg/dL (8.5-10.1); Potassium 3.9 mmol/L (3.5-5.1)
[2018-10-12 13:09] LABS: Bilirubin, Total 0.6 mg/dL (0.2-1.0); Total Protein 7.9 g/dL (6.4-8.2)
[2018-10-12] MEDS ORDERED: LACT. RINGERS/OXYTOCIN 20UNITS 1,000 ML IV ONE (14:30)
== END 2018-10-12 14:42 | disposition left against medical advice (07) ==
LOC: EDBD 01:52 → ER 02:02
DX: O03.9 Complete or unspecified spontaneous abortion without complication (principal); Z3A.00 Weeks of gestation of pregnancy not specified
CPT/HCPCS: 36415; 76801; 76817; 80053; 84702; 85025; 99284; J2590

== ENCOUNTER 2018-10-12 20:30 | Emergency (ER) | payer MEDICAID ==
[~2018-10-12] VITALS: Ht 170.2 cm; Wt 86.2 kg
[2018-10-12 20:40] VITALS: BP 109/61
== END 2018-10-13 01:48 | disposition left against medical advice (07) ==
LOC: EDBD 20:30 → ER 20:38
DX: N93.9 Abnormal uterine and vaginal bleeding, unspecified (principal); Z53.21 Procedure and treatment not carried out due to patient leaving prior to being seen by health care provider

== ENCOUNTER 2018-11-14 00:02 | Emergency (ER) | payer MEDICAID ==
[~2018-11-14] VITALS: Ht 170.2 cm; Wt 81.6 kg
[2018-11-14 00:30] VITALS: BP 108/67
[2018-11-14 01:26] LABS: Basophils # (auto) 0 uL; Basophils % (auto) 0.3 % (0.0-2.0); Eosinophils # (auto) 0.1 uL; Eosinophils % (auto) 0.9 % (0.0-7.0); Hematocrit 39.6 % (36.0-46.0); Hemoglobin 13.6 g/dL (12.2-16.2); Lymphocytes # (auto) 1.6 uL; Lymphocytes % (auto) 18.8 % (10.0-50.0); Mean Corpuscular Hemoglobin 30.3 pg (28.0-32.0); Mean Corpuscular Hgb Conc. 34.4 g/dL (32.0-36.0); Mean Corpuscular Volume 88.2 fL (80.0-100.0); Monocytes # (auto) 0.8 uL; Monocytes % (auto) 10.2 % (0.0-12.0); Neutrophils # (auto) 5.8 uL; Neutrophils % (auto) 69.8 % (37.0-80.0); Platelet Count (auto) 234 10^3/uL (140-450); Red Blood Cells 4.48 10^6/uL (4.0-5.20); Red Cell Distribution Width 13.9 % (11.8-14.3); White Blood Cell 8.3 10^3/uL (4.4-10.8)
[2018-11-14 01:43] LABS: Albumin 4.3 g/dL (3.4-5.0); BUN/Creatinine Ratio 14.9; Calcium 8.5 mg/dL (8.5-10.1); Potassium 3.9 mmol/L (3.5-5.1)
[2018-11-14 01:46] LABS: Bilirubin, Total 0.8 mg/dL (0.2-1.0); Total Protein 7.7 g/dL (6.4-8.2)
[2018-11-14] MEDS ORDERED: SODIUM CHLORIDE 0.9% 1,000 ML IVB ONE (06:27)
[2018-11-14] MEDS ORDERED: PROCHLORPERAZINE EDISYLATE 5 MG/ML 2ML VIAL IV ONE (06:30)
[2018-11-14 06:51] LABS: Magnesium 2.1 mg/dL (1.6-2.6)
== END 2018-11-14 07:03 | disposition left against medical advice (07) ==
LOC: ER 00:05
DX: R11.2 Nausea with vomiting, unspecified (principal); Z53.21 Procedure and treatment not carried out due to patient leaving prior to being seen by health care provider
CPT/HCPCS: 36415; 80053; 83690; 83735; 85025

== ENCOUNTER 2018-12-15 02:31 | Emergency (ER) | payer MEDICAID ==
[~2018-12-15] VITALS: Ht 167.6 cm; Wt 64.9 kg
[2018-12-15 07:45] VITALS: BP 110/66
[2018-12-15] MEDS: KETOROLAC TROMETH 60MG/2ML VIAL IM ONE (08:40)
== END 2018-12-15 09:40 | disposition home or self-care (01) ==
LOC: ER 02:36
DX: M54.6 Pain in thoracic spine (principal); M25.512 Pain in left shoulder; Z59.0 Homelessness; Y07.11 Biological father, perpetrator of maltreatment and neglect
CPT/HCPCS: 72070; 81025; 96372; 99283; J1885

== ENCOUNTER 2019-01-09 23:49 | Emergency (ER) | payer MEDICAID ==
[~2019-01-09] VITALS: Ht 170.2 cm; Wt 81.6 kg
[2019-01-09 23:58] VITALS: BP 110/57
[2019-01-10] MEDS ORDERED: TRIAMCINOLONE 40MG/ML 1ML VIAL IM ONE (03:15)
[2019-01-10 03:26] LABS: Urine Bacteria FEW /hpf (None Seen); Urine Blood Negative /uL (Negative); Urine Mucus FEW (None Seen); Urine Specific Gravity 1.024 (1.001-1.035); Urine WBC 1 /hpf (0 - 5)
[2019-01-10 03:42] LABS: Alcohol, Urine < 3.0 mg/dL (0-5); Amphetamine Screen, Urine NEGATIVE (NEGATIVE); Barbiturate Scree,Urine NEGATIVE (NEGATIVE); Benzodiazephine Screen, Urine NEGATIVE (NEGATIVE); Cannabinoid Screen, Urine POSITIVE (NEGATIVE); Cocaine Screen, Urine NEGATIVE (NEGATIVE); Opiate Scree,Urine NEGATIVE (NEGATIVE); Phencyclidine Screen, Urine NEGATIVE (NEGATIVE)
== END 2019-01-10 03:29 | disposition home or self-care (01) ==
LOC: ER 23:54
DX: O99.89 Other specified diseases and conditions complicating pregnancy, childbirth and the puerperium (principal); M54.5 Low back pain; Z3A.00 Weeks of gestation of pregnancy not specified
CPT/HCPCS: 80307; 81001; 81002; 81025

== ENCOUNTER 2019-01-11 01:28 | Emergency (ER) | payer MEDICAID ==
[~2019-01-11] VITALS: Ht 175.3 cm; Wt 72.6 kg
[2019-01-11 01:40] VITALS: BP 91/48
[2019-01-11 01:56] LABS: Basophils # (auto) 0 uL; Basophils % (auto) 0.6 % (0.0-2.0); Eosinophils # (auto) 0.1 uL; Hematocrit 34.1 % (36.0-46.0); Hemoglobin 11.5 g/dL (12.2-16.2); Lymphocytes # (auto) 1.6 uL; Lymphocytes % (auto) 21.6 % (10.0-50.0); Mean Corpuscular Hemoglobin 30.5 pg (28.0-32.0); Mean Corpuscular Hgb Conc. 33.7 g/dL (32.0-36.0); Mean Corpuscular Volume 90.5 fL (80.0-100.0); Monocytes # (auto) 0.9 uL; Neutrophils # (auto) 4.6 uL; Neutrophils % (auto) 64.8 % (37.0-80.0); Nucleated Red Blood Cells % 0.1 %; Platelet Count (auto) 212 10^3/uL (140-450); Red Blood Cells 3.77 10^6/uL (4.0-5.20); Red Cell Distribution Width 14.6 % (11.8-14.3); White Blood Cell 7.2 10^3/uL (4.4-10.8)
[2019-01-11 02:12] LABS: INR 1.02 (0.9-1.15); Partial Thromboplastin Time 28.2 sec (23.78-33.04); Prothrombin Time 10.9 sec (9.27-12.13)
[2019-01-11 02:15] LABS: BUN/Creatinine Ratio 14.5; Calcium 7.5 mg/dL (8.5-10.1); Potassium 3.7 mmol/L (3.5-5.1)
[2019-01-11 02:17] LABS: Bilirubin, Total 0.2 mg/dL (0.2-1.0); Total Protein 5.9 g/dL (6.4-8.2)
[2019-01-11] MEDS ORDERED: FOLIC ACID 1 MG TAB PO ONE (07:15)
== END 2019-01-11 09:21 | disposition home or self-care (01) ==
LOC: EDBD 01:28 → ER 01:33
DX: O46.91 Antepartum hemorrhage, unspecified, first trimester (principal); Z3A.01 Less than 8 weeks gestation of pregnancy
CPT/HCPCS: 36415; 76801; 80053; 84702; 85025; 85610; 85730

== ENCOUNTER 2019-01-11 23:17 | Emergency (ER) | payer MEDICAID ==
[~2019-01-11] VITALS: Ht 170.2 cm; Wt 81.6 kg
[2019-01-12 03:54] LABS: Basophils # (auto) 0 uL; Basophils % (auto) 0.4 % (0.0-2.0); Eosinophils # (auto) 0.1 uL; Eosinophils % (auto) 1.4 % (0.0-7.0); Hemoglobin 12.1 g/dL (12.2-16.2); Lymphocytes # (auto) 1.7 uL; Mean Corpuscular Hgb Conc. 34.5 g/dL (32.0-36.0); Mean Corpuscular Volume 89.9 fL (80.0-100.0); Monocytes # (auto) 0.6 uL; Monocytes % (auto) 8.8 % (0.0-12.0); Neutrophils # (auto) 4.1 uL; Neutrophils % (auto) 63.4 % (37.0-80.0); Platelet Count (auto) 223 10^3/uL (140-450); Red Cell Distribution Width 14.3 % (11.8-14.3); White Blood Cell 6.5 10^3/uL (4.4-10.8)
[2019-01-12 04:07] LABS: Urine Bacteria NONE SEEN /hpf (None Seen); Urine Blood Negative /uL (Negative); Urine Mucus FEW (None Seen); Urine Specific Gravity 1.014 (1.001-1.035); Urine WBC 1 /hpf (0 - 5)
[2019-01-12 04:17] LABS: Albumin 3.5 g/dL (3.4-5.0); BUN/Creatinine Ratio 7.7; Calcium 8.3 mg/dL (8.5-10.1); Magnesium 1.9 mg/dL (1.6-2.6); Potassium 3.7 mmol/L (3.5-5.1)
[2019-01-12 04:20] LABS: Bilirubin, Total 0.7 mg/dL (0.2-1.0); Total Protein 6.7 g/dL (6.4-8.2)
[2019-01-12] MEDS ORDERED: SODIUM CHLORIDE 0.9% 1,000 ML IVB ONE (07:55)
[2019-01-12] MEDS ORDERED: PROMETHAZINE HCL 25 MG/ML 1ML IV ONE (08:00)
[2019-01-12 10:14] VITALS: BP 108/56
== END 2019-01-12 10:31 | disposition home or self-care (01) ==
LOC: ER 23:19
DX: O46.91 Antepartum hemorrhage, unspecified, first trimester (principal); O21.0 Mild hyperemesis gravidarum; Z3A.01 Less than 8 weeks gestation of pregnancy
CPT/HCPCS: 36415; 80053; 81001; 81025; 83735; 84702; 85025; 94761; 96361; 96374; 99283; J2550; J7030

== ENCOUNTER 2019-01-18 06:24 | Emergency (ER) | payer MEDICAID ==
[~2019-01-18] VITALS: Ht 170.2 cm; Wt 77.1 kg
[2019-01-18 07:29] VITALS: BP 117/28
[2019-01-18 07:56] LABS: Basophils # (auto) 0 uL; Basophils % (auto) 0.2 % (0.0-2.0); Eosinophils # (auto) 0 uL; Eosinophils % (auto) 0.3 % (0.0-7.0); Hematocrit 37.6 % (36.0-46.0); Hemoglobin 12.7 g/dL (12.2-16.2); Lymphocytes # (auto) 1.5 uL; Lymphocytes % (auto) 18.3 % (10.0-50.0); Mean Corpuscular Hemoglobin 30.1 pg (28.0-32.0); Mean Corpuscular Hgb Conc. 33.6 g/dL (32.0-36.0); Mean Corpuscular Volume 89.7 fL (80.0-100.0); Monocytes # (auto) 0.7 uL; Monocytes % (auto) 8.3 % (0.0-12.0); Neutrophils # (auto) 5.9 uL; Neutrophils % (auto) 72.9 % (37.0-80.0); Nucleated Red Blood Cells % 0.1 %; Platelet Count (auto) 243 10^3/uL (140-450); Red Cell Distribution Width 14.4 % (11.8-14.3)
[2019-01-18 08:14] LABS: INR 0.98 (0.9-1.15); Partial Thromboplastin Time 27.7 sec (23.78-33.04); Prothrombin Time 10.5 sec (9.27-12.13)
[2019-01-18 08:21] LABS: Albumin 3.7 g/dL (3.4-5.0); Calcium 7.9 mg/dL (8.5-10.1); Potassium 3.5 mmol/L (3.5-5.1)
[2019-01-18 08:23] LABS: BUN/Creatinine Ratio 10.9
[2019-01-18 08:25] LABS: Bilirubin, Total 0.4 mg/dL (0.2-1.0); Total Protein 7.2 g/dL (6.4-8.2)
[2019-01-18] MEDS ORDERED: ONDANSETRON ODT 4 MG TAB PO ONE (08:30)
[2019-01-18 09:05] LABS: Urine Bacteria FEW /hpf (None Seen); Urine Blood Negative /uL (Negative); Urine Mucus FEW (None Seen); Urine Specific Gravity 1.022 (1.001-1.035); Urine WBC 2 /hpf (0 - 5)
== END 2019-01-18 09:14 | disposition home or self-care (01) ==
LOC: ER 06:24 → EDBD 06:24 → ER 09:14
DX: O21.8 Other vomiting complicating pregnancy (principal); O26.891 Other specified pregnancy related conditions, first trimester; R10.30 Lower abdominal pain, unspecified; Z3A.13 13 weeks gestation of pregnancy
CPT/HCPCS: 36415; 80053; 81001; 82150; 83690; 84702; 85025; 85610; 85730; 99283; Q0162

== ENCOUNTER 2019-01-22 14:02 | Emergency (ER) | payer MEDICAID ==
[~2019-01-22] VITALS: Ht 167.6 cm; Wt 86.2 kg
[2019-01-22 14:18] VITALS: BP 104/61
[2019-01-22 15:11] LABS: Urine Bacteria NONE SEEN /hpf (None Seen); Urine Blood Negative /uL (Negative); Urine Mucus FEW (None Seen); Urine Specific Gravity 1.024 (1.001-1.035); Urine WBC 3 /hpf (0 - 5)
[2019-01-22 15:42] LABS: Alcohol, Urine < 3.0 mg/dL (0-5); Amphetamine Screen, Urine NEGATIVE (NEGATIVE); Barbiturate Scree,Urine NEGATIVE (NEGATIVE); Benzodiazephine Screen, Urine NEGATIVE (NEGATIVE); Cannabinoid Screen, Urine POSITIVE (NEGATIVE); Cocaine Screen, Urine NEGATIVE (NEGATIVE); Opiate Scree,Urine NEGATIVE (NEGATIVE); Phencyclidine Screen, Urine NEGATIVE (NEGATIVE)
== END 2019-01-22 17:28 | disposition home or self-care (01) ==
LOC: ER 14:02
DX: O23.41 Unspecified infection of urinary tract in pregnancy, first trimester (principal); Z3A.08 8 weeks gestation of pregnancy
CPT/HCPCS: 76801; 80307; 81001; 82962

== ENCOUNTER 2019-01-28 23:36 | Emergency (ER) | payer MEDICAID ==
[~2019-01-28] VITALS: Ht 152.4 cm; Wt 63.5 kg
[2019-01-29 00:45] LABS: Basophils # (auto) 0 uL; Basophils % (auto) 0.5 % (0.0-2.0); Eosinophils # (auto) 0.1 uL; Eosinophils % (auto) 1.3 % (0.0-7.0); Hematocrit 36.1 % (36.0-46.0); Hemoglobin 12.2 g/dL (12.2-16.2); Lymphocytes # (auto) 1.3 uL; Lymphocytes % (auto) 21.7 % (10.0-50.0); Mean Corpuscular Hemoglobin 30.6 pg (28.0-32.0); Mean Corpuscular Hgb Conc. 33.9 g/dL (32.0-36.0); Mean Corpuscular Volume 90.2 fL (80.0-100.0); Monocytes # (auto) 0.7 uL; Monocytes % (auto) 12.5 % (0.0-12.0); Neutrophils # (auto) 3.8 uL; Nucleated Red Blood Cells % 0.2 %; Platelet Count (auto) 228 10^3/uL (140-450); Red Cell Distribution Width 14.3 % (11.8-14.3)
[2019-01-29 00:57] VITALS: BP 112/82
[2019-01-29 00:57] LABS: Chloride 105 mmol/L (98-107); Potassium 3.4 mmol/L (3.5-5.1); Sodium 136 mmol/L (136-145)
[2019-01-29 00:59] LABS: Albumin 3.4 g/dL (3.4-5.0); Anion Gap 8 (5-15); Blood Urea Nitrogen 7 mg/dL (7-18); Calcium 8.3 mg/dL (8.5-10.1); Carbon Dioxide 23 mmol/L (21-32); Glucose 83 mg/dL (74-106)
[2019-01-29 01:00] LABS: Blood Alcohol < 3.0 mg/dL (0-5)
[2019-01-29 01:02] LABS: Alanine Aminotransferase 13 U/L (13-56); Aspartate Aminotransferase 9 U/L (15-37); GFR African American 183 mL/min; GFR Non-African American 151 mL/min
[2019-01-29 01:05] LABS: Alkaline Phosphatase 62 U/L (45-117); Bilirubin, Total 0.2 mg/dL (0.2-1.0); Total Protein 6.9 g/dL (6.4-8.2)
== END 2019-01-29 02:12 | disposition left against medical advice (07) ==
LOC: ER 23:39
DX: R42 Dizziness and giddiness (principal); Z53.21 Procedure and treatment not carried out due to patient leaving prior to being seen by health care provider
CPT/HCPCS: 36415; 80053; 80320; 85025

== ENCOUNTER 2019-01-29 22:06 | Emergency (ER) | payer MEDICAID ==
[~2019-01-29] VITALS: Ht 167.6 cm; Wt 86.2 kg
[2019-01-29 23:56] LABS: Basophils # (auto) 0 uL; Basophils % (auto) 0.4 % (0.0-2.0); Eosinophils # (auto) 0.1 uL; Eosinophils % (auto) 0.9 % (0.0-7.0); Hematocrit 36.5 % (36.0-46.0); Hemoglobin 12.2 g/dL (12.2-16.2); Lymphocytes # (auto) 0.8 uL; Lymphocytes % (auto) 13.7 % (10.0-50.0); Mean Corpuscular Hemoglobin 30.2 pg (28.0-32.0); Mean Corpuscular Hgb Conc. 33.6 g/dL (32.0-36.0); Monocytes # (auto) 0.6 uL; Monocytes % (auto) 10.3 % (0.0-12.0); Neutrophils # (auto) 4.4 uL; Neutrophils % (auto) 74.7 % (37.0-80.0); Platelet Count (auto) 221 10^3/uL (140-450); Red Blood Cells 4.05 10^6/uL (4.0-5.20); Red Cell Distribution Width 14.3 % (11.8-14.3); White Blood Cell 5.9 10^3/uL (4.4-10.8)
[2019-01-30 00:06] LABS: Chloride 105 mmol/L (98-107); Potassium 3.5 mmol/L (3.5-5.1); Sodium 138 mmol/L (136-145)
[2019-01-30 00:10] LABS: Albumin 3.5 g/dL (3.4-5.0); Anion Gap 9 (5-15); Blood Urea Nitrogen 6 mg/dL (7-18); Calcium 8.3 mg/dL (8.5-10.1); Carbon Dioxide 24 mmol/L (21-32); Glucose 81 mg/dL (74-106)
[2019-01-30 00:16] LABS: Alanine Aminotransferase 11 U/L (13-56); Alkaline Phosphatase 60 U/L (45-117); Aspartate Aminotransferase 11 U/L (15-37); BUN/Creatinine Ratio 9.5; GFR African American 153 mL/min; GFR Non-African American 127 mL/min; Total Protein 6.9 g/dL (6.4-8.2)
[2019-01-30 00:24] LABS: Bilirubin, Total 0.4 mg/dL (0.2-1.0)
[2019-01-30] MEDS ORDERED: SODIUM CHLORIDE 0.9% 1,000 ML IVB ONE (08:57)
[2019-01-30] MEDS ORDERED: PROMETHAZINE HCL 25 MG/ML 1ML IV ONE (09:00)
[2019-01-30 11:00] LABS: Urine Bacteria NONE SEEN /hpf (None Seen); Urine Blood Negative /uL (Negative); Urine Mucus FEW (None Seen); Urine Specific Gravity 1.007 (1.001-1.035); Urine WBC 1 /hpf (0 - 5)
[2019-01-30 11:22] VITALS: BP 108/57
== END 2019-01-30 13:31 | disposition home or self-care (01) ==
LOC: ER 22:09
DX: O21.0 Mild hyperemesis gravidarum (principal); Z3A.11 11 weeks gestation of pregnancy
CPT/HCPCS: 36415; 80053; 81001; 83690; 83735; 84484; 84702; 85025; 96361; 96374; 99284; J2550; J7030

== ENCOUNTER 2019-02-13 03:21 | Emergency (ER) | payer MEDICAID | END 2019-02-13 03:26 | disposition left against medical advice (07) | LOC: ER 03:23 | DX: R11.2 Nausea with vomiting, unspecified (principal); R30.0 Dysuria; Z53.21 Procedure and treatment not carried out due to patient leaving prior to being seen by health care provider ==

== ENCOUNTER 2019-02-13 08:16 | Emergency (ER) | payer MEDICAID ==
[~2019-02-13] VITALS: Ht 167.6 cm; Wt 86.2 kg
[2019-02-13 08:54] LABS: Basophils # (auto) 0 uL; Basophils % (auto) 0.7 % (0.0-2.0); Eosinophils # (auto) 0.1 uL; Eosinophils % (auto) 1.5 % (0.0-7.0); Hematocrit 36.5 % (36.0-46.0); Hemoglobin 12.5 g/dL (12.2-16.2); Lymphocytes # (auto) 1.5 uL; Lymphocytes % (auto) 26.4 % (10.0-50.0); Mean Corpuscular Hemoglobin 30.8 pg (28.0-32.0); Mean Corpuscular Hgb Conc. 34.3 g/dL (32.0-36.0); Mean Corpuscular Volume 89.8 fL (80.0-100.0); Monocytes # (auto) 0.5 uL; Monocytes % (auto) 9.3 % (0.0-12.0); Neutrophils # (auto) 3.5 uL; Neutrophils % (auto) 62.1 % (37.0-80.0); Platelet Count (auto) 217 10^3/uL (140-450); Red Blood Cells 4.07 10^6/uL (4.0-5.20); Red Cell Distribution Width 13.7 % (11.8-14.3); White Blood Cell 5.7 10^3/uL (4.4-10.8)
[2019-02-13 08:57] LABS: Urine Bacteria FEW /hpf (None Seen); Urine Blood Negative /uL (Negative); Urine Mucus FEW (None Seen); Urine Specific Gravity 1.022 (1.001-1.035); Urine WBC 6 /hpf (0 - 5)
[2019-02-13 09:10] LABS: Albumin 3.5 g/dL (3.4-5.0); BUN/Creatinine Ratio 9.1; Calcium 8.4 mg/dL (8.5-10.1); Potassium 3.6 mmol/L (3.5-5.1)
[2019-02-13 09:14] LABS: Bilirubin, Total 0.5 mg/dL (0.2-1.0); Total Protein 7.1 g/dL (6.4-8.2)
[2019-02-13] MEDS ORDERED: ONDANSETRON HCL 4 MG/2 ML VIAL IV ONE (11:00)
[2019-02-13] MEDS ORDERED: SODIUM CHLORIDE 0.9% 1,000 ML IV ONE (11:00)
[2019-02-13] MEDS ORDERED: ONDANSETRON HCL 4 MG/2 ML VIAL ONE (11:02)
[2019-02-13 12:50] VITALS: BP 116/65
== END 2019-02-13 12:52 | disposition home or self-care (01) ==
LOC: ER 08:25
DX: O21.0 Mild hyperemesis gravidarum (principal); Z59.0 Homelessness; Z3A.12 12 weeks gestation of pregnancy
CPT/HCPCS: 36415; 76801; 80053; 81001; 84702; 85025; 96361; 96374; 99284; J2405

== ENCOUNTER 2019-02-13 20:44 | Emergency (ER) | payer MEDICAID ==
[~2019-02-13] VITALS: Ht 157.5 cm; Wt 72.6 kg
[2019-02-13 21:19] LABS: Basophils # (auto) 0 uL; Basophils % (auto) 0.4 % (0.0-2.0); Eosinophils # (auto) 0.1 uL; Eosinophils % (auto) 1.2 % (0.0-7.0); Hematocrit 34.5 % (36.0-46.0); Hemoglobin 11.8 g/dL (12.2-16.2); Lymphocytes # (auto) 1.4 uL; Lymphocytes % (auto) 23.2 % (10.0-50.0); Mean Corpuscular Hemoglobin 30.7 pg (28.0-32.0); Mean Corpuscular Hgb Conc. 34.3 g/dL (32.0-36.0); Mean Corpuscular Volume 89.4 fL (80.0-100.0); Monocytes # (auto) 0.6 uL; Monocytes % (auto) 10.1 % (0.0-12.0); Neutrophils # (auto) 3.9 uL; Neutrophils % (auto) 65.1 % (37.0-80.0); Platelet Count (auto) 218 10^3/uL (140-450); Red Blood Cells 3.86 10^6/uL (4.0-5.20)
[2019-02-13 21:29] LABS: Acetaminophen < 2.0 ug/mL (10-30); Albumin 3.2 g/dL (3.4-5.0); Calcium 8.2 mg/dL (8.5-10.1); Potassium 3.6 mmol/L (3.5-5.1); Salicylate < 1.7 mg/dL (2.8-20.0)
[2019-02-13 21:33] LABS: BUN/Creatinine Ratio 17.2; Bilirubin, Total 0.5 mg/dL (0.2-1.0); Total Protein 6.3 g/dL (6.4-8.2)
[2019-02-14 04:17] VITALS: BP 100/45
[2019-02-14 04:59] LABS: Urine Bacteria FEW /hpf (None Seen); Urine Blood Negative /uL (Negative); Urine Mucus FEW (None Seen); Urine Specific Gravity 1.028 (1.001-1.035); Urine WBC 3 /hpf (0 - 5)
[2019-02-14 05:11] LABS: Alcohol, Urine < 3.0 mg/dL (0-5); Amphetamine Screen, Urine NEGATIVE (NEGATIVE); Barbiturate Scree,Urine NEGATIVE (NEGATIVE); Benzodiazephine Screen, Urine NEGATIVE (NEGATIVE); Cannabinoid Screen, Urine POSITIVE (NEGATIVE); Cocaine Screen, Urine NEGATIVE (NEGATIVE); Opiate Scree,Urine NEGATIVE (NEGATIVE); Phencyclidine Screen, Urine NEGATIVE (NEGATIVE)
[2019-02-14] MEDS ORDERED: ACETAMINOPHEN 500 MG TAB PO ONE (05:30)
[2019-02-14] MEDS ORDERED: MILK OF MAGNESIA 30ML SUSP PO ONE (05:30)
== END 2019-02-14 06:07 | disposition home or self-care (01) ==
LOC: EDBD 20:44 → ER 20:44
DX: O23.41 Unspecified infection of urinary tract in pregnancy, first trimester (principal); K21.9 Gastro-esophageal reflux disease without esophagitis; Z3A.12 12 weeks gestation of pregnancy
CPT/HCPCS: 36415; 80053; 80307; 80320; 80329; 81001; 84702; 85025

== ENCOUNTER 2019-02-20 06:26 | Emergency (ER) | payer MEDICAID ==
[~2019-02-20] VITALS: Ht 167.6 cm; Wt 86.2 kg
[2019-02-20 06:33] VITALS: BP 103/58
[2019-02-20] MEDS ORDERED: ACETAMINOPHEN 500 MG TAB PO ONE (08:15)
== END 2019-02-20 10:36 | disposition home or self-care (01) ==
LOC: ER 06:26
DX: O26.891 Other specified pregnancy related conditions, first trimester (principal); M54.9 Dorsalgia, unspecified; Z3A.12 12 weeks gestation of pregnancy; Z59.0 Homelessness; W01.198A Fall on same level from slipping, tripping and stumbling with subsequent striking against other object, initial encounter; Y93.89 Activity, other specified; Y92.89 Other specified places as the place of occurrence of the external cause; Y99.8 Other external cause status
CPT/HCPCS: 76815

== ENCOUNTER 2019-03-05 22:44 | Emergency (ER) | payer MEDICAID ==
[~2019-03-05] VITALS: Ht 167.6 cm; Wt 68.0 kg
[2019-03-06 06:57] VITALS: BP 98/55
[2019-03-06 10:21] LABS: Urine Bacteria NONE SEEN /hpf (None Seen); Urine Blood Negative /uL (Negative); Urine Mucus FEW (None Seen); Urine Specific Gravity 1.008 (1.001-1.035); Urine WBC <1 /hpf (0 - 5)
== END 2019-03-06 10:08 | disposition home or self-care (01) ==
LOC: EDBD 22:44 → ER 22:46
DX: O26.891 Other specified pregnancy related conditions, first trimester (principal); R10.9 Unspecified abdominal pain; Z3A.14 14 weeks gestation of pregnancy; Z59.0 Homelessness
CPT/HCPCS: 36415; 76805; 81001; 84702

== ENCOUNTER 2019-03-10 02:42 | Emergency (ER) | payer MEDICAID ==
[~2019-03-10] VITALS: Ht 165.1 cm; Wt 72.6 kg
[2019-03-10 02:50] VITALS: BP 113/72
[2019-03-10 04:10] LABS: Albumin 3.1 g/dL (3.4-5.0); Calcium 8.2 mg/dL (8.5-10.1); Potassium 3.5 mmol/L (3.5-5.1)
[2019-03-10 04:13] LABS: Basophils # (auto) 0 uL; Basophils % (auto) 0.3 % (0.0-2.0); Eosinophils # (auto) 0 uL; Eosinophils % (auto) 0.7 % (0.0-7.0); Hemoglobin 11.4 g/dL (12.2-16.2); Lymphocytes # (auto) 1.3 uL; Lymphocytes % (auto) 19.5 % (10.0-50.0); Mean Corpuscular Hemoglobin 31.1 pg (28.0-32.0); Mean Corpuscular Hgb Conc. 34.6 g/dL (32.0-36.0); Mean Corpuscular Volume 89.7 fL (80.0-100.0); Monocytes # (auto) 0.7 uL; Monocytes % (auto) 10.4 % (0.0-12.0); Neutrophils # (auto) 4.7 uL; Neutrophils % (auto) 69.1 % (37.0-80.0); Platelet Count (auto) 214 10^3/uL (140-450); Red Blood Cells 3.67 10^6/uL (4.0-5.20); Red Cell Distribution Width 13.9 % (11.8-14.3); White Blood Cell 6.8 10^3/uL (4.4-10.8)
[2019-03-10 04:14] LABS: BUN/Creatinine Ratio 10.5; Bilirubin, Total 0.4 mg/dL (0.2-1.0); Total Protein 6.4 g/dL (6.4-8.2)
== END 2019-03-10 08:06 | disposition home or self-care (01) ==
LOC: EDBD 02:42 → ER 02:53
DX: O20.8 Other hemorrhage in early pregnancy (principal); Z3A.15 15 weeks gestation of pregnancy
CPT/HCPCS: 36415; 76805; 80053; 84702; 85025

== ENCOUNTER 2019-03-10 23:07 | Emergency (ER) | payer MEDICAID ==
[~2019-03-10] VITALS: Ht 170.2 cm; Wt 86.2 kg
[2019-03-11 00:23] LABS: Acetaminophen < 2.0 ug/mL (10-30); Salicylate < 1.7 mg/dL (2.8-20.0)
[2019-03-11 02:02] LABS: Alcohol, Urine < 3.0 mg/dL (0-5); Barbiturate Scree,Urine NEGATIVE (NEGATIVE); Cannabinoid Screen, Urine POSITIVE (NEGATIVE); Cocaine Screen, Urine NEGATIVE (NEGATIVE)
[2019-03-11 02:08] LABS: Urine Amorphous Crystal MANY /hpf (None Seen); Urine Bacteria MOD /hpf (None Seen); Urine Blood Negative /uL (Negative); Urine Mucus MODERATE (None Seen); Urine Specific Gravity 1.026 (1.001-1.035); Urine WBC 5 /hpf (0 - 5)
[2019-03-11 02:10] LABS: Amphetamine Screen, Urine NEGATIVE (NEGATIVE); Benzodiazephine Screen, Urine NEGATIVE (NEGATIVE); Opiate Scree,Urine NEGATIVE (NEGATIVE); Phencyclidine Screen, Urine NEGATIVE (NEGATIVE)
[2019-03-11] MEDS ORDERED: cefTRIAXone SOD 1,000 MG VL IM ONE (13:45)
[2019-03-12] MEDS ORDERED: NALBUPHINE HCL 10 MG/1ml INJECTION IM ONE (21:15)
[2019-03-13] MEDS: CEPHALEXIN 250 MG CAP PO SCH ×4 (08:24→21:55)
[2019-03-13] MEDS ORDERED: ONDANSETRON ODT 4 MG TAB PO ONE ×2 (21:15→21:17)
[2019-03-14] MEDS: CEPHALEXIN 250 MG CAP PO SCH ×3 (09:12→21:34)
[2019-03-15] MEDS: CEPHALEXIN 250 MG CAP PO SCH ×4 (07:00→21:41)
--- NOTE | 2019-03-15 12:21 | NUR ---
Attempted to speak with pt who would not make eye contact nor speak. cargo worker tried to speak with her but pt just shrugged her shoulders. Pt is in isolated room with nurse but there is very little interaction. [facility] [phone] Fax. [phone].
[2019-03-16] MEDS: CEPHALEXIN 250 MG CAP PO SCH ×2 (07:38→12:45)
[2019-03-17] MEDS: CEPHALEXIN 250 MG CAP PO SCH ×3 (12:16→22:00)
[2019-03-18] MEDS: CEPHALEXIN 250 MG CAP PO SCH ×3 (06:00→22:26)
[2019-03-18 19:35] LABS: Calcium 8.2 mg/dL (8.5-10.1); Potassium 3.8 mmol/L (3.5-5.1)
[2019-03-18 19:40] LABS: Albumin 2.9 g/dL (3.4-5.0); BUN/Creatinine Ratio 14.3; Bilirubin, Total 0.4 mg/dL (0.2-1.0); Total Protein 6.4 g/dL (6.4-8.2)
[2019-03-18] MEDS ORDERED: CIPROFLOXACIN HCL 500 MG TAB PO ONE (20:45)
[2019-03-19] MEDS: CEPHALEXIN 250 MG CAP PO SCH (06:55)
[2019-03-19 09:24] VITALS: BP 116/64
== END 2019-03-19 09:40 | disposition short-term general hospital (02) ==
LOC: ER 23:07
DX: O99.342 Other mental disorders complicating pregnancy, second trimester (principal); F41.8 Other specified anxiety disorders; F32.9 Major depressive disorder, single episode, unspecified; Z3A.15 15 weeks gestation of pregnancy
CPT/HCPCS: 36415; 76805; 80053; 80307; 80320; 80329; 81001; 84702; 94761; 99285; J7030; Q0162

== ENCOUNTER 2019-04-14 22:39 | Emergency (ER) | payer MEDICAID ==
[~2019-04-14] VITALS: Ht 172.7 cm; Wt 90.7 kg
[2019-04-14 23:56] LABS: Basophils # (auto) 0 uL; Basophils % (auto) 0.3 % (0.0-2.0); Eosinophils # (auto) 0.1 uL; Eosinophils % (auto) 1.1 % (0.0-7.0); Hematocrit 32.7 % (36.0-46.0); Hemoglobin 11.3 g/dL (12.2-16.2); Lymphocytes # (auto) 0.9 uL; Lymphocytes % (auto) 17.2 % (10.0-50.0); Mean Corpuscular Hemoglobin 32.1 pg (28.0-32.0); Mean Corpuscular Hgb Conc. 34.5 g/dL (32.0-36.0); Mean Corpuscular Volume 92.9 fL (80.0-100.0); Neutrophils # (auto) 3.5 uL; Neutrophils % (auto) 63.4 % (37.0-80.0); Nucleated Red Blood Cells % 0.1 %; Platelet Count (auto) 194 10^3/uL (140-450); Red Blood Cells 3.52 10^6/uL (4.0-5.20); Red Cell Distribution Width 14.6 % (11.8-14.3); White Blood Cell 5.5 10^3/uL (4.4-10.8)
[2019-04-15 00:13] LABS: Calcium 7.9 mg/dL (8.5-10.1); Potassium 3.6 mmol/L (3.5-5.1)
[2019-04-15 00:19] LABS: Bilirubin, Total 0.3 mg/dL (0.2-1.0); Total Protein 6.5 g/dL (6.4-8.2)
[2019-04-15 02:54] LABS: Urine WBC None Seen /hpf (0 - 5)
[2019-04-15 03:16] LABS: Urine Bacteria NONE SEEN /hpf (None Seen); Urine Blood Negative /uL (Negative); Urine Specific Gravity 1.007 (1.001-1.035)
[2019-04-15 08:10] VITALS: BP 98/53
== END 2019-04-15 08:56 | disposition home or self-care (01) ==
LOC: EDBD 22:39 → ER 22:39
DX: O26.892 Other specified pregnancy related conditions, second trimester (principal); M54.5 Low back pain; R11.0 Nausea; Z3A.20 20 weeks gestation of pregnancy
CPT/HCPCS: 36415; 80053; 81001; 81025; 85025

== ENCOUNTER 2019-04-23 21:46 | Emergency (ER) | payer MEDICAID ==
[~2019-04-23] VITALS: Ht 170.2 cm; Wt 45.4 kg
[2019-04-23 22:07] VITALS: BP 118/65
[2019-04-24 00:53] LABS: Urine Bacteria FEW /hpf (None Seen); Urine Blood Negative /uL (Negative); Urine Mucus FEW (None Seen); Urine Specific Gravity 1.035 (1.001-1.035); Urine WBC 1 /hpf (0 - 5)
== END 2019-04-24 18:00 | disposition home or self-care (01) ==
LOC: ER 21:46 → EDBD 21:46 → ER 22:19
DX: O26.892 Other specified pregnancy related conditions, second trimester (principal); R51 Headache; Z59.0 Homelessness; Z3A.20 20 weeks gestation of pregnancy
CPT/HCPCS: 81001

== ENCOUNTER 2019-08-26 10:48 | Observation (INO) | payer MEDICAID ==
[~2019-08-26] VITALS: Ht 170.2 cm; Wt 90.7 kg
[2019-08-26] MEDS ORDERED: LACTATED RINGER'S 1,000 ML IV SCH (11:05)
[2019-08-26] MEDS ORDERED: LIDOCAINE 2%HCL (LOCAL ANESTH.) INJ 20ML MDV ID ONE (11:15)
[2019-08-26] MEDS ORDERED: NALBUPHINE HCL 10 MG/1ml INJECTION IV PRN (11:15)
[2019-08-26] MEDS ORDERED: METHYLERGONOVINE MALEATE 0.2 MG/ML AMP IM PRN (11:15)
[2019-08-26] MEDS ORDERED: PHISODERM TOP SOLN 240ML BTL TOP PRN (11:15)
[2019-08-26] MEDS ORDERED: PENICILLIN G POT 5MIL/D5 50ML 50 ML IV ONE (11:15)
[2019-08-26] MEDS ORDERED: LACT. RINGERS/OXYTOCIN 20UNITS 1,000 ML IV ONE (11:40)
[2019-08-26 11:59] LABS: Basophils # (auto) 0 uL; Basophils % (auto) 0.2 % (0.0-2.0); Eosinophils # (auto) 0 uL; Eosinophils % (auto) 0.2 % (0.0-7.0); Hematocrit 33.4 % (36.0-46.0); Hemoglobin 11.9 g/dL (12.2-16.2); Lymphocytes # (auto) 1.1 uL; Lymphocytes % (auto) 13.1 % (10.0-50.0); Mean Corpuscular Hgb Conc. 35.7 g/dL (32.0-36.0); Mean Corpuscular Volume 89.6 fL (80.0-100.0); Monocytes # (auto) 0.8 uL; Monocytes % (auto) 10.1 % (0.0-12.0); Neutrophils # (auto) 6.4 uL; Neutrophils % (auto) 76.4 % (37.0-80.0); Nucleated Red Blood Cells % 0.1 %; Platelet Count (auto) 198 10^3/uL (140-450); Red Blood Cells 3.73 10^6/uL (4.0-5.20); Red Cell Distribution Width 13.9 % (11.8-14.3); White Blood Cell 8.3 10^3/uL (4.4-10.8)
[2019-08-26] MEDS ORDERED: HYDROcodone-ACET 10/325MG TAB PO ONE (12:00)
[2019-08-26 12:05] LABS: Urine Amorphous Crystal FEW /hpf (None Seen); Urine Bacteria NONE SEEN /hpf (None Seen); Urine Blood 3+ /uL (Negative); Urine Mucus FEW (None Seen); Urine Specific Gravity 1.018 (1.001-1.035); Urine WBC 51 /hpf (0 - 5)
[2019-08-26 12:14] LABS: Alcohol, Urine < 3.0 mg/dL (0-5); Amphetamine Screen, Urine NEGATIVE (NEGATIVE); Barbiturate Scree,Urine NEGATIVE (NEGATIVE); Benzodiazephine Screen, Urine NEGATIVE (NEGATIVE); Cannabinoid Screen, Urine POSITIVE (NEGATIVE); Cocaine Screen, Urine NEGATIVE (NEGATIVE); Opiate Scree,Urine NEGATIVE (NEGATIVE); Phencyclidine Screen, Urine NEGATIVE (NEGATIVE)
[2019-08-26] MEDS: WITCH HAZEL-GLYCERIN PAD TOP PRN ×2 (12:19→19:23)
[2019-08-26] MEDS: DERMOPLAST 60ML BOTTLE TOP PRN ×2 (12:19→19:23)
[2019-08-26 12:20] LABS: INR 0.96 (0.9-1.15); Partial Thromboplastin Time 27.9 sec (23.64-32.05)
[2019-08-26 13:15] LABS: BUN/Creatinine Ratio 6.1; Bilirubin, Total 0.3 mg/dL (0.2-1.0); Calcium 8.3 mg/dL (8.5-10.1); Potassium 3.4 mmol/L (3.5-5.1); Total Protein 6.5 g/dL (6.4-8.2)
[2019-08-26 13:16] LABS: Albumin 2.7 g/dL (3.4-5.0)
[2019-08-26 13:32] VITALS: BP 132/62
--- NOTE | 2019-08-26 13:53 | NUR ---
Ambulation: Patient OOB with standby assistance by RN. Patient ambulated to bathroom with steady gait. Patient able to void without difficulty. Pericare teaching provided with returned demonstration by patient. Clean gown provided and bed linen changed. Patient ambulated back to bed with steady gait and no distress noted.
--- NOTE | 2019-08-26 13:54 | NUR ---
Teaching: Reviewed information in [facility] booklet with patient. Discussed benefits of and risks associated with not . Advise mother to supplement with bottle due to urine screen. mother still wishes to continue to breastfeed but stated she will ask for a bottle when she feels ready. Discussed different positions, proper latch, feeding cues, and baby-led . Provided information of medication side effects related to . All questions and concerns addressed at this time. Patient verbalized understanding of information.
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
--- NOTE | 2019-08-26 14:28 | NUR ---
SS Barbra social director at bedside of patient.
[2019-08-26] MEDS ORDERED: PENICILLIN G POTASSIUM 2,500,000 UNITS in D5W 5% 50 ML IV SCH (15:15)
[2019-08-26 15:30] VITALS: BP 128/64
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
--- NOTE | 2019-08-26 16:11 | NUR ---
Amended Note hospital social workerFiorella called Child Protective Services with report. Spoke with Optometrist Rehana. The report number is [id number].
--- NOTE | 2019-08-26 17:02 | NUR ---
patient has been bonding well with baby.
[2019-08-26] MEDS: IBUPROFEN 600 MG TAB PO PRN (17:18)
[2019-08-26 19:00] VITALS: BP 111/54
--- NOTE | 2019-08-26 19:10 | NUR ---
Reviewed plan of care with patient. Discussed goals, safety and pain scale. Pt expressed a need for a car seat when asked if she was lacking any necessities. Patient is holding and engaged with caring for him. Patient receptive to instruction. Reviewed the need for a urine specimen from . Pt verbalized understanding and will call when diaper is wet. Pericare provided, labial swelling noted. Tucks/spray/ice applied. No hematoma, or pain noted. This RN provided education on caring for infant, independent pericare, pain and resources that may be available. Pt verbalized understanding.
--- NOTE | 2019-08-26 23:12 | NUR ---
Assistance with provided. Infant latched onto pt breast tissue not areola. Pt agreed to accept assistance from this RN. Dayo cradle latch, latched
[2019-08-26 23:20] VITALS: BP 105/54
--- NOTE | 2019-08-27 01:04 | NUR ---
OOB to void 800, pt independent pericare. Lochia light. IV right hand discontinued. Dressing applied, C/D/I
[2019-08-27 02:57] VITALS: BP 104/61
--- NOTE | 2019-08-27 04:26 | NUR ---
Assistance provided with susan.
[2019-08-27 05:06] LABS: RPR Non Reactive (Non Reactive)
[2019-08-27 06:06] LABS: Rubella Antibodies, IgG 2.01 index (Immune >0.99)
--- NOTE | 2019-08-27 06:10 | NUR ---
Report received from Ciro Daigle RN on stable pt. Assumed care. Addendum: 08/27/19 at 0638 by Cat Alex RN Amended: Links added.
[2019-08-27 07:05] VITALS: BP 106/58
[2019-08-27] MEDS: IBUPROFEN 600 MG TAB PO PRN ×2 (07:56→18:37)
[2019-08-27] MEDS ORDERED: POTASSIUM CHL 20 Meq TABLET PO ONE (08:15)
[2019-08-27 10:59] VITALS: BP 94/51
[2019-08-27 15:00] VITALS: BP 108/58
--- NOTE | 2019-08-27 16:29 | NUR ---
CPS called and informed that + for THC and that pt lives in a senior care. No updates given from CPS at this time.
--- NOTE | 2019-08-27 18:10 | NUR ---
Report given to Ciro Daigle RN on stable pt. Relinquished care. Addendum: 08/27/19 at 1828 by Cat Alex RN Amended: Links added.
[2019-08-27 19:00] VITALS: BP 98/50
[2019-08-27 23:00] VITALS: BP 100/52
[2019-08-28 03:00] VITALS: BP 101/60
[2019-08-28] MEDS: ACETAMINOPHEN 325 MG TAB PO PRN ×2 (04:08→10:44)
[2019-08-28 07:07] VITALS: BP 117/55
--- NOTE | 2019-08-28 07:25 | NUR ---
I answered the patients call light and noticed the patient was crying. she was upset because the nurse had went in her room after shift change and turned her light on and did an assessment on the baby when the baby was sleeping. she said that the nurse told her to feed the baby because he was giving que's that he was hungry. I stated to the patient that we have to assess you and baby at every shift change to make sure they are both okay and we have to chart it at a certain time. I went to chart the last feeding for her and saw that she hadn't fed the baby since 0200. she said she didn't want that "bitch to come in my room anymore". I asked her if she wanted me to take the baby to the nursery so she can calm down and she said "that was the last thing she wanted. She asked me to place the baby in the open crib. she said "he just ate this bottle so he will probably throw up but i don't care". I placed the baby side lying and placed the crib at an incline with bulb syringe in crib. I told her that i was sorry that she was upset and to hit to the call light if she needed anything. charge nurse is aware.
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
--- NOTE | 2019-08-28 07:28 | NUR ---
Discussed feeding cues: Informed PT baby uses feeding cues when hungry. This is an early sign to help use know what they need, since they are unable to express it verbally. Crying is a late sign.
--- NOTE | 2019-08-28 07:55 | NUR ---
DR FISH CALLED AND UPDATED ON PT DEPRESSION SCORE AND PT STATES OF "EVERYONE HAS BEEN MEAN TO HER". PER DR FISH PSYCH CONSULT IS ORDERED.
--- NOTE | 2019-08-28 08:22 | NUR ---
recieved report Shaw Maloney
--- NOTE | 2019-08-28 08:22 | NUR ---
REPORT GIVEN TO Morelia MUNIZ RN TRANSFERRED CARE.
[2019-08-28 11:00] VITALS: BP 111/59
--- NOTE | 2019-08-28 14:49 | NUR ---
psychiatric doctor speaking with patient via [place] video.
[2019-08-28 15:00] VITALS: BP 122/58
--- NOTE | 2019-08-28 16:00 | NUR ---
psychiatric note doctor Margret Abarca recommend medication lexapro. recommended an outpatient psychiatric follow up in the the next two weeks through [facility] and recommended continued social media manager support/follow up to ensure the welfare of the baby. 1610 doctor Raisa is aware of the consult and not to discharge patient until patient has the follow up appointments. and will write a prescription tomorrow and [facility] so patient has it in hand prior to discharge. 1615 order for social consult and left message with Anabela.
[2019-08-28] MEDS: IBUPROFEN 600 MG TAB PO PRN (16:29)
--- NOTE | 2019-08-28 17:00 | NUR ---
engineering in room to fix toilet. i was in there the entire time
--- NOTE | 2019-08-28 18:10 | NUR ---
Received report, assumed care from Piter CHIU
--- NOTE | 2019-08-28 18:30 | NUR ---
This RN at bedside. Discussed goals, safety of both pt and , and plan of care. Pt affect is flat, however on occasion interjected that she wanted to be "left alone" as in not so many people coming in and out of the pt room. this Rn verbalized understanding and responded with "I will do rounding every other hour instead of every hour. " Pt agreed to this. Pt further, reluctantly agreed to, the review of discharge instructions at or around 1100 pm. This RN shared the desire verbally to see her,pt, succeed as a new mom, and would like to help provide her the tools to to enable her to care for her . At this time patient became overwhelmed, and respectfully requested to be left alone. This registered nurse bone marrow transplant at this time Pt is easily overwhelmed. Will allow for opportunity to sleep/rest and broach discharge educations after pt has had opportunity to sleep.
[2019-08-28 19:00] VITALS: BP 115/47
--- NOTE | 2019-08-28 22:57 | NUR ---
This RN at bedside. Patient missplaced feeding log. Pt given several copies so she could resume feeding log. Pt is noncompliant. Flat affect when asked where the feeding log went and did she want a more structured form that would instruct her when to feed the baby.; Pt declined. Pt fed baby 90mL and complained that baby spit a lot up and needed clean t-shirts. This RN provided education on amnt of formula baby should consume and provided clean tshirts. Pt declined structured feeding plan and removed blood band and identification bands, off her wrist. This RN instructed pt she was required to wear band and reapplied. Pt declined further education at this time.
[2019-08-28 23:00] VITALS: BP 101/47
--- NOTE | 2019-08-28 23:19 | NUR ---
Returned to pt room with fresh ice, body wash and sandwich. Pt declined further instruction on how to care for . When this RN questioned pt on the items previously provided, she stated "I don't know. " Pt items found in trash, including water pitcher , that was given at start of shift. Pt also threw away feeding log. At this time pt is attempting to feed breast and similac. Pt is not following direction on feeding infant, and had declined further education.
--- NOTE | 2019-08-28 23:35 | NUR ---
This RN placed call to CPS to report concerns regarding this patient. Radha Weaver, [employer], received call and assigned new CPS report number [id number]. This RN expressed concern for infant well being upon discharge to [employer]. Patient is not receptive to education on care and feeding of son "Aleksey". This RN has attempted over the period of 3 night shifts, including tonight, to review how to care for and feed baby. Patient responds by saying, she just "doesn't know what to do". When specifically asked "Can I review how to care for baby when you get home, so you are prepared when you leave the hospital?... Pt stated "No" RN responded by reassuring pt I was available to help. When patient was provided feeding logs to properly log feeding so she can keep track of feeding so as not to overfeed, patient threw them away. Specifically, pt fed infant 120 mL in a 4 hour period, and then complained that baby threw up and needed clean shirts. Pt displays flat affect when education reinforced.
[2019-08-29 03:05] VITALS: BP 105/56
[2019-08-29 03:06] VITALS: BP 105/56
--- NOTE | 2019-08-29 03:07 | NUR ---
Pt resting comfortably on visual assessment. Vital signs taken for and mother. PT provided feeding log for and instructed on filling it out. Pt calmly states that the baby ate two hours ago and that she will fill it in. Pt then laid back down and fell asleep.
--- NOTE | 2019-08-29 03:17 | NUR ---
Nancy Yepez Guidance Secretary [facility] called regarding referral made for pt. Per Nancy, pt has a manager social work and an open case with her first child. She, Nancy will speak with her worker and spring encaser will follow up. If [facility] has not heard back from worker before discharge, call hotline number in reference to this case number .... Addendum: 08/29/19 at 0323 by WEST AREVALO RN [id number]
--- NOTE | 2019-08-29 05:53 | NUR ---
Jenna Schmitt Technician [employer] call for [facility]. Report given as to all previously documented including Telepshyche consult. Per Jenna she will present to this department this morning and begin process.
--- NOTE | 2019-08-29 06:15 | NUR ---
Report received from WILSON Daigle on stable pt. Assumed care. Addendum: 08/29/19 at 1917 by Cat Alex RN Amended: Links added.
[2019-08-29 07:15] VITALS: BP 121/70
--- NOTE | 2019-08-29 08:38 | NUR ---
Anabela called from [employer], update given. Anabela states that Susana will arrive to the birthplace with resources for behavioral health follow-up.
--- NOTE | 2019-08-29 09:40 | NUR ---
[facility] arrives to the [facility], awaiting arrival of to serve warrant removing from maternal custody. 0945- Ashli. Keshia social work manager in room with [employer] Consultant Meryl Serrano. salvage worker informed pt that they were there to discuss plan to remove from custody. 1030- department of natural resources officer arrives to [facility], warrant served to pt for removal of from custody.
[2019-08-29 11:20] VITALS: BP 119/69
--- NOTE | 2019-08-29 12:07 | NUR ---
Received Social Service consult to see pt. CPS has become involved in with this case over the weekend. The baby was released to CPS. group home worker, Fiorella Pearce gave pt resources. The Behavioral Health [phone] and the Crisis Center [phone] phone numbers were given to the pt. Pt was also encouraged to seek help from her primary physican.
--- NOTE | 2019-08-29 15:00 | NUR ---
Late entry- This RN spoke with Dr. Kline and updated her that Certified Medication Technician has come in to see pt and has provided pt with community resources for the crisis center and behavioral health, phone numbers provided. Pt has been educated on the importance of calling to schedule appointment with Behavioral health, to be seen within [address] Kilne informed that CPS has been in to see pt and that has been removed from her custody. Pt is interacting appropriately at this time, with no signs of discomfort or distress noted. Orders received to d/c pt home with medication as prescribed.
--- NOTE | 2019-08-29 15:14 | NUR ---
LEXAPRO 10 MG PO QD #30 NO REFILLS CALLED IN TO [facility] PER DR FISH ORDERS.
--- NOTE | 2019-08-29 15:14 | NUR ---
SPOKE TO [facility] IN PHARMACY FOR PRESCRIPTION, [facility] IN HOUSE.
[2019-08-29 15:30] VITALS: BP 119/66
[2019-08-29] MEDS: IBUPROFEN 600 MG TAB PO PRN (15:36)
--- NOTE | 2019-08-29 15:50 | NUR ---
Discharge: Discharge instructions given as ordered. Pt encouraged to follow up with DIVINITY PROFESSOR as instructed. Pt educated on the importance of scheduling appointment with behavioral health within 2 weeks. Medication filled by [facility] pharmacy given to pt, pt educated on how to take medication. All questions and concerns addressed. Patient verbalized understanding. Medication reconciliation completed and copy given to patient. All required/requested vaccines given and copies of vaccinations given to patient. Patient encouraged to prepare to depart unit. This RN will fill out taxi voucher. Pt denies the need or want for clothing or food upon d/c to [facility].
--- NOTE | 2019-08-29 16:10 | NUR ---
Renee called for pt transport to [facility]. spoke with TRISTAN Holcomb 20 minutes.
--- NOTE | 2019-08-29 16:35 | NUR ---
Discharge: Patient ambulated with steady gait to Taxi with all personal belongings, accompanied by staff. No distress noted at time of departure, no adverse changes in status since initial assessment.
== END 2019-08-29 16:35 | disposition home or self-care (01) | DRG 560 ==
LOC: LDRP 10:48
PROVIDERS: ADMIT Obstetrics & Gynecology; ATTEND Obstetrics & Gynecology
DX: O62.9 Abnormality of forces of labor, unspecified (principal); Z37.0 Single live birth; O80 Encounter for full-term uncomplicated delivery; Z3A.39 39 weeks gestation of pregnancy
CPT/HCPCS: 36415; 59025; 80053; 80307; 81001; 81002; 84112; 84550; 85025; 85610; 85730; 86592; 86703; 86762; 86850; 86900; 86901; 87340; 88307; 96365; 96372; G0378; J2210; J2590; 59409; 96366; J2540; J7060

== ENCOUNTER 2019-09-05 06:43 | Emergency (ER) | payer MEDICAID ==
[~2019-09-05] VITALS: Ht 167.6 cm; Wt 86.2 kg
[2019-09-05 06:48] VITALS: BP 122/62
== END 2019-09-05 07:39 | disposition home or self-care (01) ==
LOC: ER 06:43
DX: O90.89 Other complications of the puerperium, not elsewhere classified (principal); M54.32 Sciatica, left side; Z59.0 Homelessness
CPT/HCPCS: 99283; J7030

== ENCOUNTER 2019-09-11 21:19 | Emergency (ER) | payer MEDICAID ==
[~2019-09-11] VITALS: Ht 167.6 cm; Wt 81.6 kg
[2019-09-11 22:08] LABS: Basophils # (auto) 0.1 uL; Basophils % (auto) 0.9 % (0.0-2.0); Eosinophils # (auto) 0.1 uL; Eosinophils % (auto) 1.5 % (0.0-7.0); Hematocrit 36.5 % (36.0-46.0); Hemoglobin 12.9 g/dL (12.2-16.2); Lymphocytes # (auto) 2.2 uL; Lymphocytes % (auto) 33.8 % (10.0-50.0); Mean Corpuscular Hgb Conc. 35.4 g/dL (32.0-36.0); Mean Corpuscular Volume 87.5 fL (80.0-100.0); Monocytes # (auto) 0.6 uL; Monocytes % (auto) 9.6 % (0.0-12.0); Neutrophils # (auto) 3.5 uL; Neutrophils % (auto) 54.2 % (37.0-80.0); Nucleated Red Blood Cells % 0.1 %; Platelet Count (auto) 250 10^3/uL (140-450); Red Blood Cells 4.17 10^6/uL (4.0-5.20); Red Cell Distribution Width 13.5 % (11.8-14.3); White Blood Cell 6.4 10^3/uL (4.4-10.8)
[2019-09-11 22:26] LABS: Albumin 3.3 g/dL (3.4-5.0); Calcium 7.9 mg/dL (8.5-10.1); Potassium 3.7 mmol/L (3.5-5.1)
[2019-09-11 22:30] LABS: BUN/Creatinine Ratio 9.9; Bilirubin, Total 0.2 mg/dL (0.2-1.0); Total Protein 6.7 g/dL (6.4-8.2)
[2019-09-11 22:40] LABS: Acetaminophen < 2.0 ug/mL (10-30); Salicylate < 1.7 mg/dL (2.8-20.0)
[2019-09-12 03:06] LABS: Alcohol, Urine < 3.0 mg/dL (0-5); Amphetamine Screen, Urine NEGATIVE (NEGATIVE); Barbiturate Scree,Urine NEGATIVE (NEGATIVE); Benzodiazephine Screen, Urine NEGATIVE (NEGATIVE); Cannabinoid Screen, Urine POSITIVE (NEGATIVE); Cocaine Screen, Urine NEGATIVE (NEGATIVE); Opiate Scree,Urine NEGATIVE (NEGATIVE); Phencyclidine Screen, Urine NEGATIVE (NEGATIVE)
[2019-09-12 03:16] LABS: Urine Bacteria FEW /hpf (None Seen); Urine Blood Negative /uL (Negative); Urine Mucus FEW (None Seen); Urine WBC 21 /hpf (0 - 5)
[2019-09-12] MEDS ORDERED: NITROFURANTOIN (MONO) 100 mg CAP PO ONE (03:45)
[2019-09-12] MEDS ORDERED: cefTRIAXone SOD 1,000 MG VL IM ONE (10:30)
[2019-09-12] MEDS ORDERED: IBUPROFEN 600 MG TAB PO ONE (10:45)
[2019-09-12 18:11] VITALS: BP 110/64
== END 2019-09-12 18:47 | disposition short-term general hospital (02) ==
LOC: EDBD 21:19 → ER 21:24
DX: F22 Delusional disorders (principal); N39.0 Urinary tract infection, site not specified; R45.851 Suicidal ideations
CPT/HCPCS: 36415; 71046; 80053; 80307; 80320; 80329; 81001; 84702; 85025; 93005; 96372; 99285; J0696

== ENCOUNTER 2019-09-27 23:14 | Emergency (ER) | payer MEDICAID ==
[~2019-09-27] VITALS: Ht 170.2 cm; Wt 90.7 kg
[2019-09-27 23:54] LABS: Basophils # (auto) 0 uL; Basophils % (auto) 0.4 % (0.0-2.0); Eosinophils # (auto) 0.1 uL; Eosinophils % (auto) 1.4 % (0.0-7.0); Hematocrit 38.3 % (36.0-46.0); Hemoglobin 13.3 g/dL (12.2-16.2); Lymphocytes # (auto) 1.8 uL; Lymphocytes % (auto) 30.6 % (10.0-50.0); Mean Corpuscular Hemoglobin 31.3 pg (28.0-32.0); Mean Corpuscular Hgb Conc. 34.6 g/dL (32.0-36.0); Mean Corpuscular Volume 90.5 fL (80.0-100.0); Monocytes # (auto) 0.6 uL; Neutrophils # (auto) 3.4 uL; Neutrophils % (auto) 57.6 % (37.0-80.0); Nucleated Red Blood Cells % 0.1 %; Platelet Count (auto) 212 10^3/uL (140-450); Red Blood Cells 4.24 10^6/uL (4.0-5.20); Red Cell Distribution Width 13.5 % (11.8-14.3); White Blood Cell 5.9 10^3/uL (4.4-10.8)
[2019-09-28 00:14] LABS: Albumin 3.3 g/dL (3.4-5.0); BUN/Creatinine Ratio 9.3; Calcium 8.1 mg/dL (8.5-10.1); Potassium 3.7 mmol/L (3.5-5.1)
[2019-09-28 00:16] LABS: Urine Bacteria FEW /hpf (None Seen); Urine Blood 2+ /uL (Negative); Urine Mucus FEW (None Seen); Urine Specific Gravity 1.017 (1.001-1.035); Urine WBC 2 /hpf (0 - 5)
[2019-09-28 00:17] LABS: Bilirubin, Total 0.4 mg/dL (0.2-1.0); Total Protein 6.9 g/dL (6.4-8.2)
[2019-09-28 04:00] VITALS: BP 122/44
[2019-09-28 09:10] LABS: Alcohol, Urine < 3.0 mg/dL (0-5); Amphetamine Screen, Urine NEGATIVE (NEGATIVE); Barbiturate Scree,Urine NEGATIVE (NEGATIVE); Benzodiazephine Screen, Urine NEGATIVE (NEGATIVE); Cannabinoid Screen, Urine POSITIVE (NEGATIVE); Cocaine Screen, Urine NEGATIVE (NEGATIVE); Opiate Scree,Urine NEGATIVE (NEGATIVE); Phencyclidine Screen, Urine NEGATIVE (NEGATIVE)
== END 2019-09-28 05:35 | disposition home or self-care (01) ==
LOC: EDBD 23:14 → ER 23:14
DX: R42 Dizziness and giddiness (principal)
CPT/HCPCS: 36415; 80053; 80307; 81001; 81025; 85025; 93005

== ENCOUNTER 2019-09-28 22:39 | Emergency (ER) | payer MEDICAID ==
[~2019-09-28] VITALS: Ht 167.6 cm; Wt 81.6 kg
[2019-09-28 22:59] VITALS: BP 163/95
== END 2019-09-29 00:52 | disposition left against medical advice (07) ==
LOC: EDUNIT# 22:39 → EDBD 22:39 → ER 22:43
DX: M54.9 Dorsalgia, unspecified (principal); Z53.21 Procedure and treatment not carried out due to patient leaving prior to being seen by health care provider

== ENCOUNTER 2019-10-11 22:00 | Emergency (ER) | payer MEDICAID ==
[~2019-10-11] VITALS: Ht 172.7 cm; Wt 77.1 kg
[2019-10-11 22:54] LABS: Basophils # (auto) 0 uL; Basophils % (auto) 0.4 % (0.0-2.0); Eosinophils # (auto) 0 uL; Eosinophils % (auto) 1.1 % (0.0-7.0); Hematocrit 39.1 % (36.0-46.0); Hemoglobin 13.2 g/dL (12.2-16.2); Lymphocytes # (auto) 1.4 uL; Lymphocytes % (auto) 31.8 % (10.0-50.0); Mean Corpuscular Hemoglobin 30.2 pg (28.0-32.0); Mean Corpuscular Hgb Conc. 33.6 g/dL (32.0-36.0); Mean Corpuscular Volume 89.9 fL (80.0-100.0); Monocytes # (auto) 0.7 uL; Monocytes % (auto) 16.2 % (0.0-12.0); Neutrophils # (auto) 2.2 uL; Neutrophils % (auto) 50.5 % (37.0-80.0); Platelet Count (auto) 208 10^3/uL (140-450); Red Blood Cells 4.35 10^6/uL (4.0-5.20); Red Cell Distribution Width 13.8 % (11.8-14.3); White Blood Cell 4.4 10^3/uL (4.4-10.8)
[2019-10-11 23:11] LABS: Albumin 3.7 g/dL (3.4-5.0); BUN/Creatinine Ratio 13.1; Calcium 8.6 mg/dL (8.5-10.1)
[2019-10-11 23:14] LABS: Bilirubin, Total 0.5 mg/dL (0.2-1.0); Total Protein 7.6 g/dL (6.4-8.2)
[2019-10-12] MEDS: cefTRIAXone W LIDOCAINE 1 GM IM IM ONE (00:38)
[2019-10-12] MEDS: cefTRIAXone SOD 500 MG VL IM ONE (00:39)
[2019-10-12] MEDS: cefTRIAXone SOD 1,000 MG VL ONE (00:39)
[2019-10-12] MEDS: methylPREDNISolone SOD SUCC 125 MG/2 ML VL IM ONE (00:39)
[2019-10-12 00:41] VITALS: BP 125/80
== END 2019-10-12 00:42 | disposition home or self-care (01) ==
LOC: EDUNIT# 22:00 → EDBD 22:00 → ER 22:03
DX: S00.86XA Insect bite (nonvenomous) of other part of head, initial encounter (principal); S10.96XA Insect bite of unspecified part of neck, initial encounter; S40.862A Insect bite (nonvenomous) of left upper arm, initial encounter; S40.861A Insect bite (nonvenomous) of right upper arm, initial encounter; W57.XXXA Bitten or stung by nonvenomous insect and other nonvenomous arthropods, initial encounter; Y93.89 Activity, other specified; Y92.89 Other specified places as the place of occurrence of the external cause; Y99.8 Other external cause status
CPT/HCPCS: 36415; 80053; 85025; 96372; 99283; J0696; J2930

== ENCOUNTER 2019-11-08 00:33 | Emergency (ER) | payer MEDICAID ==
[~2019-11-08] VITALS: Ht 172.7 cm; Wt 90.7 kg
[2019-11-08 01:32] LABS: Basophils # (auto) 0 uL; Basophils % (auto) 0.5 % (0.0-2.0); Eosinophils # (auto) 0.1 uL; Eosinophils % (auto) 1.2 % (0.0-7.0); Hematocrit 36.3 % (36.0-46.0); Hemoglobin 12.5 g/dL (12.2-16.2); Lymphocytes # (auto) 1.6 uL; Lymphocytes % (auto) 28.1 % (10.0-50.0); Mean Corpuscular Hemoglobin 30.4 pg (28.0-32.0); Mean Corpuscular Hgb Conc. 34.6 g/dL (32.0-36.0); Monocytes # (auto) 0.5 uL; Monocytes % (auto) 8.1 % (0.0-12.0); Neutrophils # (auto) 3.4 uL; Neutrophils % (auto) 62.1 % (37.0-80.0); Platelet Count (auto) 253 10^3/uL (140-450); Red Blood Cells 4.13 10^6/uL (4.0-5.20); Red Cell Distribution Width 13.6 % (11.8-14.3); White Blood Cell 5.5 10^3/uL (4.4-10.8)
[2019-11-08 01:38] LABS: Urine Bacteria FEW /hpf (None Seen); Urine Blood Negative /uL (Negative); Urine Mucus FEW (None Seen); Urine Specific Gravity 1.024 (1.001-1.035); Urine WBC 16 /hpf (0 - 5)
[2019-11-08 01:50] LABS: Acetaminophen < 2.0 ug/mL (10-30); Albumin 3.6 g/dL (3.4-5.0); BUN/Creatinine Ratio 12.2; Calcium 8.2 mg/dL (8.5-10.1); Potassium 3.3 mmol/L (3.5-5.1); Salicylate 1.8 mg/dL (2.8-20.0)
[2019-11-08 01:52] LABS: Alcohol, Urine < 3.0 mg/dL (0-5); Amphetamine Screen, Urine NEGATIVE (NEGATIVE); Barbiturate Scree,Urine NEGATIVE (NEGATIVE); Benzodiazephine Screen, Urine NEGATIVE (NEGATIVE); Cannabinoid Screen, Urine POSITIVE (NEGATIVE); Cocaine Screen, Urine NEGATIVE (NEGATIVE); Opiate Scree,Urine NEGATIVE (NEGATIVE); Phencyclidine Screen, Urine NEGATIVE (NEGATIVE)
[2019-11-08 01:53] LABS: Bilirubin, Total 0.3 mg/dL (0.2-1.0); Total Protein 7.3 g/dL (6.4-8.2)
[2019-11-08] MEDS: cefTRIAXone 1GM/50ML D5W 50 ML IV ONE (05:00)
[2019-11-08] MEDS: diphenhdrAMINE HCL 50 MG/1 ML VL IV ONE (05:44)
[2019-11-08 17:39] VITALS: BP 129/50
== END 2019-11-08 18:12 | disposition short-term general hospital (02) ==
LOC: EDBD 00:33 → ER 00:37
DX: R45.851 Suicidal ideations (principal); F32.9 Major depressive disorder, single episode, unspecified; N39.0 Urinary tract infection, site not specified
CPT/HCPCS: 36415; 80053; 80307; 80320; 80329; 81001; 81025; 84702; 85025; 93005; 96365; 96375; 99285; J0696; J1200

== ENCOUNTER 2019-11-25 20:22 | Emergency (ER) | payer MEDICAID ==
[~2019-11-25] VITALS: Ht 167.6 cm; Wt 108.0 kg
[2019-11-25 20:49] VITALS: BP 120/49
[2019-11-25 21:38] LABS: Basophils # (auto) 0 uL; Basophils % (auto) 0.4 % (0.0-2.0); Eosinophils # (auto) 0 uL; Eosinophils % (auto) 0.5 % (0.0-7.0); Hematocrit 37.7 % (36.0-46.0); Hemoglobin 12.9 g/dL (12.2-16.2); Lymphocytes # (auto) 1.1 uL; Lymphocytes % (auto) 18.7 % (10.0-50.0); Mean Corpuscular Hemoglobin 30.5 pg (28.0-32.0); Mean Corpuscular Hgb Conc. 34.4 g/dL (32.0-36.0); Mean Corpuscular Volume 88.7 fL (80.0-100.0); Monocytes # (auto) 0.5 uL; Monocytes % (auto) 9.1 % (0.0-12.0); Neutrophils # (auto) 4.2 uL; Neutrophils % (auto) 71.3 % (37.0-80.0); Nucleated Red Blood Cells % 0.1 %; Platelet Count (auto) 241 10^3/uL (140-450); Red Blood Cells 4.25 10^6/uL (4.0-5.20); Red Cell Distribution Width 13.9 % (11.8-14.3); White Blood Cell 5.9 10^3/uL (4.4-10.8)
[2019-11-25 21:52] LABS: Albumin 3.8 g/dL (3.4-5.0); Calcium 8.5 mg/dL (8.5-10.1); Potassium 4.2 mmol/L (3.5-5.1)
[2019-11-25 21:55] LABS: BUN/Creatinine Ratio 17.9; Bilirubin, Total 0.3 mg/dL (0.2-1.0); Total Protein 7.5 g/dL (6.4-8.2)
== END 2019-11-26 00:40 | disposition left against medical advice (07) ==
LOC: ER 20:27
DX: R51 Headache (principal); Z53.21 Procedure and treatment not carried out due to patient leaving prior to being seen by health care provider
CPT/HCPCS: 36415; 80053; 83690; 84702; 85025

== ENCOUNTER 2019-12-04 01:17 | Emergency (ER) | payer MEDICAID ==
[~2019-12-04] VITALS: Ht 172.7 cm; Wt 81.6 kg
[2019-12-04] MEDS ORDERED: IBUPROFEN 600 MG TAB PO ONE (07:45)
[2019-12-04 07:55] VITALS: BP 107/70
== END 2019-12-04 09:21 | disposition home or self-care (01) ==
LOC: EDBD 01:17 → ER 01:24
DX: M25.552 Pain in left hip (principal); N39.0 Urinary tract infection, site not specified
CPT/HCPCS: 73502; 81025

== ENCOUNTER → 2019-12-05 | Emergency (ER) | payer MEDICAID ==
[~2019-12-05] VITALS: Ht 167.6 cm; Wt 86.2 kg
[~2019-12-05] MED LIST: ACETAMINOPHEN 325 MG TAB PO ONE
[2019-12-05 01:56] LABS: Basophils # (auto) 0 uL; Basophils % (auto) 0.4 % (0.0-2.0); Eosinophils # (auto) 0.1 uL; Eosinophils % (auto) 1.1 % (0.0-7.0); Hematocrit 37.6 % (36.0-46.0); Hemoglobin 12.8 g/dL (12.2-16.2); Lymphocytes # (auto) 1.7 uL; Lymphocytes % (auto) 25.2 % (10.0-50.0); Mean Corpuscular Hemoglobin 30.2 pg (28.0-32.0); Mean Corpuscular Volume 88.7 fL (80.0-100.0); Monocytes # (auto) 0.7 uL; Monocytes % (auto) 10.3 % (0.0-12.0); Neutrophils # (auto) 4.3 uL; Nucleated Red Blood Cells % 0.1 %; Platelet Count (auto) 251 10^3/uL (140-450); Red Blood Cells 4.25 10^6/uL (4.0-5.20); Red Cell Distribution Width 13.8 % (11.8-14.3); White Blood Cell 6.8 10^3/uL (4.4-10.8)
[2019-12-05 02:14] LABS: Albumin 3.7 g/dL (3.4-5.0); Anion Gap 4 (5-15); Blood Urea Nitrogen 6 mg/dL (7-18); Calcium 8.3 mg/dL (8.5-10.1); Carbon Dioxide 27 mmol/L (21-32); Chloride 109 mmol/L (98-107); Glucose 89 mg/dL (74-106); Potassium 3.7 mmol/L (3.5-5.1); Sodium 140 mmol/L (136-145)
[2019-12-05 02:17] LABS: Alanine Aminotransferase 26 U/L (13-56); Aspartate Aminotransferase 21 U/L (15-37); BUN/Creatinine Ratio 7.4; Blood Alcohol < 3.0 mg/dL (0-5); GFR African American 114 mL/min; GFR Non-African American 94 mL/min
[2019-12-05 02:18] LABS: Acetaminophen < 2.0 ug/mL (10-30); Salicylate < 1.7 mg/dL (2.8-20.0)
[2019-12-05 02:20] LABS: Alkaline Phosphatase 86 U/L (45-117); Bilirubin, Total 0.4 mg/dL (0.2-1.0); Total Protein 7.3 g/dL (6.4-8.2)
[2019-12-05 22:31] LABS: Urine Pregnacy Test Negative (Negative)
[2019-12-05 22:34] LABS: Urine Bacteria NONE SEEN /hpf (None Seen); Urine Blood Negative /uL (Negative); Urine Mucus FEW (None Seen); Urine Specific Gravity 1.021 (1.001-1.035); Urine WBC 1 /hpf (0 - 5)
[2019-12-05 22:46] LABS: Alcohol, Urine < 3.0 mg/dL (0-5); Amphetamine Screen, Urine NEGATIVE (NEGATIVE); Barbiturate Scree,Urine NEGATIVE (NEGATIVE); Benzodiazephine Screen, Urine NEGATIVE (NEGATIVE); Cannabinoid Screen, Urine POSITIVE (NEGATIVE); Cocaine Screen, Urine NEGATIVE (NEGATIVE); Opiate Scree,Urine NEGATIVE (NEGATIVE); Phencyclidine Screen, Urine NEGATIVE (NEGATIVE)
[2019-12-08 22:57] VITALS: BP 97/57
== END | disposition home or self-care (01) ==
LOC: EDUNIT# 00:12 → EDBD 00:15 → EDSEX 00:15 → ER 00:18
DX: F32.9 Major depressive disorder, single episode, unspecified (principal); R45.851 Suicidal ideations; F99 Mental disorder, not otherwise specified; F41.9 Anxiety disorder, unspecified; Z59.0 Homelessness
CPT/HCPCS: 36415; 80053; 80307; 80320; 80329; 81001; 81025; 83735; 84702; 85025

== ENCOUNTER → 2020-01-12 | Emergency (ER) | payer MEDICAID ==
[~2020-01-12] VITALS: Ht 162.6 cm; Wt 90.7 kg
[2020-01-12 07:58] VITALS: BP 105/47
== END | disposition home or self-care (01) ==
LOC: EDUNIT# 05:25 → ER 05:26 → EDBD 05:26
DX: F41.9 Anxiety disorder, unspecified (principal); F32.9 Major depressive disorder, single episode, unspecified; N93.9 Abnormal uterine and vaginal bleeding, unspecified

== ENCOUNTER 2020-01-13 15:23 | Emergency (ER) | payer MEDICAID ==
[~2020-01-13] VITALS: Ht 177.8 cm; Wt 72.6 kg
[2020-01-14] MEDS ORDERED: diphenhdrAMINE HCL 25 MG CAP PO ONE ×2 (18:05→18:15)
[2020-01-15] MEDS ORDERED: BENZTROPINE MESY 0.5 MG TAB PO ONE ×2 (20:15)
[2020-01-15] MEDS ORDERED: diphenhdrAMINE HCL 25 MG CAP PO ONE ×2 (20:15)
[2020-01-16] MEDS ORDERED: BENZTROPINE MESY 0.5 MG TAB PO ONE (11:15)
[2020-01-17] MEDS ORDERED: BENZTROPINE MESY 0.5 MG TAB PO ONE (00:45)
[2020-01-17] MEDS ORDERED: diphenhdrAMINE HCL 25 MG CAP PO ONE ×2 (00:45→00:56)
[2020-01-17] MEDS ORDERED: BENZTROPINE MESY 0.5 MG TAB ONE (00:56)
[2020-01-17 07:30] VITALS: BP 100/52
== END 2020-01-17 09:08 | disposition still patient (30) ==
LOC: ER 15:23 → EDBD 15:23 → EDUNIT# 15:23 → ER 01-17 09:08
DX: R45.851 Suicidal ideations (principal); F32.9 Major depressive disorder, single episode, unspecified; F20.9 Schizophrenia, unspecified; Z59.0 Homelessness

== ENCOUNTER 2021-05-05 11:26 | Emergency (ER) | payer MEDICAID ==
[~2021-05-05] VITALS: Ht 167.6 cm; Wt 121.1 kg
[2021-05-05 12:27] VITALS: BP 112/45
== END 2021-05-05 16:02 | disposition home or self-care (01) ==
LOC: ER 11:26
DX: H66.91 Otitis media, unspecified, right ear (principal); N39.0 Urinary tract infection, site not specified; Z32.02 Encounter for pregnancy test, result negative

== ENCOUNTER 2022-12-04 21:46 | Emergency (ER) | payer MEDICAID ==
[~2022-12-04] VITALS: Ht 167.6 cm; Wt 105.0 kg
[2022-12-05 03:28] VITALS: BP 123/69
[2022-12-05] MEDS ORDERED: CIP03OS RIGHTEYE (03:31)
[2022-12-05] MEDS ORDERED: IBUP600T27 PO (03:31)
[2022-12-05] MEDS ORDERED: CIPR-173 PO (03:36)
[2022-12-05] MEDS ORDERED: cefTRIAXone SOD 1,000 MG VL IM ONE (03:45)
== END 2022-12-05 03:48 | disposition home or self-care (01) ==
LOC: EDBD 21:46 → ER 21:46
DX: S09.8XXA Other specified injuries of head, initial encounter (principal); F41.9 Anxiety disorder, unspecified; F32.9 Major depressive disorder, single episode, unspecified; Z59.00 Homelessness unspecified; Y08.89XA Assault by other specified means, initial encounter; Y93.89 Activity, other specified; Y92.89 Other specified places as the place of occurrence of the external cause; Y99.8 Other external cause status
CPT/HCPCS: 70450; 96372; 99285; J0696

== ENCOUNTER → 2022-12-06 | Emergency (ER) | payer MEDICAID, OTHER ==
[~2022-12-06] VITALS: Ht 170.2 cm; Wt 104.1 kg
[~2022-12-06] MED LIST changes: -ACETAMINOPHEN 325 MG TAB PO ONE; +CIP03OS RIGHTEYE; +CIPR-173 PO; +IBUP600T27 PO; +POTASSIUM EFFERVESENT TAB 25 MEQ PO ONE; +cefTRIAXone SOD 1,000 MG VL IM ONE
[2022-12-06 21:25] VITALS: BP 125/78
[2022-12-06 22:08] LABS: Urine Blood Negative /uL (Negative); Urine Specific Gravity 1.025 (1.001-1.035)
[2022-12-06 22:11] LABS: Basophils # (auto) 0 10 ^3/uL (0-0.2); Basophils % (auto) 0.6 % (0.0-2.0); Eosinophils # (auto) 0.1 10 ^3/uL (0-0.8); Eosinophils % (auto) 1.3 % (0.0-7.0); Hemoglobin 13.5 g/dL (12.2-16.2); Lymphocytes # (auto) 1.9 10 ^3/uL (0.4-5.4); Lymphocytes % (auto) 30.9 % (10.0-50.0); Mean Corpuscular Hemoglobin 30.9 pg (28.0-32.0); Mean Corpuscular Hgb Conc. 35.6 g/dL (32.0-36.0); Mean Corpuscular Volume 86.8 fL (80.0-100.0); Monocytes # (auto) 0.5 10 ^3/uL (0-1.3); Monocytes % (auto) 8.6 % (0.0-12.0); Neutrophils # (auto) 3.7 10 ^3/uL (1.6-8.6); Neutrophils % (auto) 58.6 % (37.0-80.0); Nucleated Red Blood Cells % 0.1 %; Red Blood Cells 4.37 10^6/uL (4.0-5.20); Red Cell Distribution Width 13.9 % (11.8-14.3); White Blood Cell 6.3 10^3/uL (4.4-10.8)
[2022-12-06 22:25] LABS: Alanine Aminotransferase 26 U/L (13-56); Albumin 4.1 g/dL (3.4-5.0); Anion Gap 6 (5-15); Blood Alcohol < 3.0 mg/dL (0-5); Blood Urea Nitrogen 9 mg/dL (7-18); Calcium 8.6 mg/dL (8.5-10.1); Carbon Dioxide 26 mmol/L (21-32); Chloride 111 mmol/L (98-107); Glucose 100 mg/dL (74-106); Potassium 3.4 mmol/L (3.5-5.1); Sodium 143 mmol/L (136-145)
[2022-12-06 22:28] LABS: Amphetamine Screen, Urine NEGATIVE (NEGATIVE); Barbiturate Scree,Urine NEGATIVE (NEGATIVE); Benzodiazephine Screen, Urine NEGATIVE (NEGATIVE); Cannabinoid Screen, Urine POSITIVE (NEGATIVE); Cocaine Screen, Urine NEGATIVE (NEGATIVE); Opiate Scree,Urine NEGATIVE (NEGATIVE); Phencyclidine Screen, Urine NEGATIVE (NEGATIVE)
[2022-12-06 22:28] LABS: Alkaline Phosphatase 86 U/L (45-117); Aspartate Aminotransferase 22 U/L (15-37); BUN/Creatinine Ratio 10.8; Bilirubin, Total 0.6 mg/dL (0.2-1.0); GFR African American 108 mL/min; GFR Non-African American 89 mL/min; Total Protein 7.4 g/dL (6.4-8.2)
[2022-12-06 22:38] LABS: Salicylate < 1.7 mg/dL (2.8-20.0)
[2022-12-06 22:39] LABS: Acetaminophen < 2.0 ug/mL (10-30)
== END | disposition home or self-care (01) ==
LOC: ER 21:04
DX: F32.9 Major depressive disorder, single episode, unspecified (principal); R45.851 Suicidal ideations; F17.210 Nicotine dependence, cigarettes, uncomplicated
CPT/HCPCS: 36415; 80053; 80307; 80320; 80329; 81003; 85025

== ENCOUNTER 2025-08-02 13:46 | Emergency (ER) | payer MEDICAID, OTHER ==
[~2025-08-02] VITALS: Ht 167.6 cm; Wt 72.7 kg
[~2025-08-02 13:46] MED LIST changes: +IBUP-1454 PO; -IBUP600T27 PO; -POTASSIUM EFFERVESENT TAB 25 MEQ PO ONE; -cefTRIAXone SOD 1,000 MG VL IM ONE
[2025-08-02 13:55] VITALS: BP 121/77; PULSE 130; RESP 18; TEMP 100.9; O2SAT 98
--- NOTE | 2025-08-02 14:03 | ED.PDOC ---
Altered Mental Status HPI Comments This is a 30 year old female NORMAA presenting to the ED with chief complaint of OD. EMS reports patient was at a gas station about an hour ago last seen normal buying coffee when she had smoked an "unknown substance" that she thought was marijuana. EMS relays patient then started to experience visual disturbances and twitching eyes. EMS states patient is currently A/Ox4, but still does not know what she had smoked. Patient denies any chest pain, SOB, dizziness, N/V, fever, or chills. Time Seen by MD: 13:59 Primary Care Provider: NONE Reviewed Notes: Nurses Notes, Cold Storage Superintendent Notes, Medications, Allergies Allergies: Coded Allergies: NO KNOWN ALLERGIES (Unverified , 07/28/17) Home Meds Active Scripts Ciprofloxacin Hcl (Cipro) 500 Mg Tab, 500 MG PO BID PRN for 7 Days, #14 TAB Prov:STEFFANY WHITMAN MD 12/05/22 Ibuprofen (Ibuprofen) 600 Mg Tab, 1 TAB PO BID for 7 Days, #14 TAB Prov:STEFFANY WHITMAN MD 12/05/22 Ciprofloxacin Hcl (Ophth) (Cipro Opthalmic Soln) [address], 1 DROP RIGHTEYE QID for 7 Days, #5 ML Prov:STEFFANY WHITMAN MD 12/05/22 Information Source: Patient, Emergency Med Personnel Mode of Arrival: EMS Severity: Moderate Timing: Hours Duration: Since onset Prehospital treatment: None Quality: Change in Behavior Recent: Medication/Drug Abuse Past Medical History PAST MEDICAL HISTORY: Anxiety, Depression, DM, Gallstones, Schizophrenia, Seiz ures, UTI'S Surgical History: Denies all surgeries SEASONAL TAX PREPARER History: No Pertinent SEASONAL TAX PREPARER History Family History Family History: Unknown Social History Smoker: Less Than 1 Pack/Day Alcohol: Denies ETOH Use Drugs: Denies Drug Use Lives In: Homeless Constitutional: denies: chills, diaphoresis, fatigue, fever, malaise, sweats, weakness, others EENTM: reports: others (Visual disturbances); denies: blurred vision, double vision, ear bleeding, ear discharge, ear drainage, ear pain, ear ringing, eye pain, eye redness, hearing loss, mouth pain, mouth swelling, nasal discharge, nose bleeding, nose congestion, nose pain, photophobia, tearing, throat pain, throat swelling, voice changes Respiratory: denies: cough, hemoptysis, orthopnea, SOB at rest, shortness of breath, SOB with excertion, stridor, wheezing, others Cardiovascular: denies: chest pain, dizzy spells, diaphoresis, Dyspnea on exertion, edema, irregular heart beat, left arm pain, lightheadedness, palpitations, PND, syncope, others Gastrointestinal: denies: abdomen distended, abdominal pain, blood streaked bowels, constipated, diarrhea, dysphagia, difficulty swallowing, hematemesis, melena, nausea, poor appetite, poor fluid intake, rectal bleeding, rectal pain, vomiting, others Genitourinary: denies: abnormal vagina bleeding, burning, dyspareunia, dysuria, flank pain, frequency, hematuria, incontinence, pain, , vagina discharge, urgency, others Neurological: denies: dizziness, fainting, headache, left sided numbness, left sided weakness, numbness, paresthesia, pre-existing deficit, right sided numbness, right sided weakness, seizure, speech problems, tingling, tremors, weakness, others Musculoskeletal: denies: back pain, gout, joint pain, joint swelling, muscle pain, muscle stiffness, neck pain, others Integumetry: denies: bruises, change in color, change in hair/nails, dryness, laceration, lesions, lumps, rash, wounds, others Allergic/Immunocompromised: denies: Difficulty Healing, Frequent Infections, Hives, Itching, others Hematologic/Lymphatic: denies: anemia, blood clots, easy bleeding, easy bruising, swollen glands, others Endocrine: denies: excessive hunger, excessive sweating, excessive thirst, excessive urination, flushing, intolerance to cold, intolerance to heat, unexplained weight gain, unexplained weight loss, others Psychiatric: denies: anxiety, bipolar disorder, depression, hopeless, panic disorder, schizophrenia, sleepless, suicidal, others All Other Systems: Reviewed and Negative Physical Exam General Appearance: No Apparent Distress, Normal, Other (Responding to internal stimuli) HEENT: Normal ENT Inspection, Pharynx Normal, TMs Normal Neck: Full Range of Motion, Non-Tender, Normal, Normal Inspection Respiratory: Chest Non-Tender, Lungs Clear, No Accessory Muscle Use, No Respiratory Distress, Normal Breath Sounds Cardiovascular: No Edema, No JVD, No Murmur, No Gallop, Normal Peripheral Pulses, Regular Rate/Rhythm Breast Exam: Deferred Gastrointestinal: No Organomegaly, Non Tender, No Pulsatile Mass, Normal Bowel Sounds, Soft Genitalia: Deferred Pelvic: Deferred Rectal: Deferred Extremities: No calf tenderness, Normal capillary refill, Normal inspection, Normal range of motion, Non-tender, No pedal edema Musculoskeletal : Apperance: Normal Neurologic: Alert, asbestos siding mechanic II-XII nml as Tested, No Motor Deficits, Normal Affect, Normal Mood, No Sensory Deficits Cerebellar Function: Normal Reflexes: Normal Skin: Dry, Normal Color, Warm Lymphatic: No Adenopathy Was a procedure done? Was a procedure done?: No X-Ray, Labs, Meds, VS Vital Signs Date Time Temp Pulse Resp B/P (MAP) Pulse Ox O2 Delivery O2 Flow Rate FiO2 08/02/25 13:55 100.9 130 18 121/77 98 100.9 Lab Test 08/02/25 20:41 08/02/25 14:22 Range/Units Urine Color Yellow Yellow Urine Clarity Ex.turbid Clear Urine pH 7.0 5.0-9.0 Urine Specific Holley 1.033 1.001-1.035 Urine Protein 1+ H Negative Urine Ketones 1+ H Negative Urine Blood Negative Negative /uL Urine Nitrite Negative Negative Urine Bilirubin Negative Negative Urine Urobilinogen 3 H Negative mg/dL Urine Leukocyte Esterase Trace Negative /uL Urine RBC 32 0 - 4 /hpf Urine Microscopic WBC 3 0-5 /HPF Urine Squamous Epithelial Cells Mod <5 /hpf Urine Bacteria Few H None Seen /hpf Urine Mucus Few None Seen Urine Glucose 1+ H Normal mg/dL Urine Opiates Screen Neg NEGATIVE Urine Fentanyl Screen Neg NEGATIVE Urine Barbiturates Screen Neg NEGATIVE Urine Phencyclidine Screen Neg NEGATIVE Urine Amphetamines Screen Neg NEGATIVE Urine Benzodiazepines Screen Pos NEGATIVE Urine Cocaine Screen Neg NEGATIVE Urine Cannabinoids Screen Pos NEGATIVE White Blood Count 7.8 4.4-10.8 10^3/uL Red Blood Count 4.65 4.0-5.20 10^6/uL Hemoglobin 14.1 12.2-16.2 g/dL Hematocrit 40.8 36.0-46.0 % Mean Corpuscular Volume 87.8 80.0-100.0 fL Mean Corpuscular Hemoglobin 30.3 28.0-32.0 pg Mean Corpuscular Hemoglobin Concent 34.5 32.0-36.0 g/dL Red Cell Distribution Width 13.6 11.8-14.3 % Platelet Count 252 140-450 10^3/uL Mean Platelet Volume 6.8 L 6.9-10.8 fL Neutrophils (%) (Auto) 76.1 37.0-80.0 % Lymphocytes (%) (Auto) 15.2 10.0-50.0 % Monocytes (%) (Auto) 8.4 0.0-12.0 % Eosinophils (%) (Auto) 0.0 0.0-7.0 % Basophils (%) (Auto) 0.3 0.0-2.0 % Neutrophils # (Auto) 6.0 1.6-8.6 10 ^3/uL Lymphocytes # (Auto) 1.2 0.4-5.4 10 ^3/uL Monocytes # (Auto) 0.7 0-1.3 10 ^3/uL Eosinophils # (Auto) 0 0-0.8 10 ^3/uL Basophils # (Auto) 0 0-0.2 10 ^3/uL Nucleated Red Blood Cells 0.1 % Sodium Level 143 136-145 mmol/L Potassium Level 4.0 3.5-5.1 mmol/L Chloride Level 108 H 98-107 mmol/L Carbon Dioxide Level 20 20-31 mmol/L Anion Gap 15 5-15 Blood Urea Nitrogen 12 9-23 mg/dL Creatinine 1.00 0.550-1.02 mg/dL Glomerular Filtration Rate Calc 79 >90 mL/min BUN/Creatinine Ratio 12.0 10.0-20.0 Serum Glucose 137 H 74-106 mg/dL Calcium Level 8.9 8.7-10.4 mg/dL Salicylates Level < 3.0 -30 mg/dL Acetaminophen Level < 2.0 L 10.0-20.0 UG/ML Plasma/Serum Blood Alcohol < 3.0 <10 mg/dL Current Medications Medications (Trade) Dose Ordered Sig/Eunice Route Start Time Stop Time Status Last Admin Diphenhydramine HCl (Benadryl Injection) 50 mg ONCE ONCE IV 08/02/25 17:00 08/02/25 17:01 DC 08/02/25 15:40 The patient has a officially been medically cleared for psychiatric evaluation X-Ray, Labs, Meds, VS Comment Patient later admitted to thoughts of SI while in the ED. Patient pending medical clearance prior to psychiatric evaluation. Time of 1ST Reevaluation: 14:58 Reevaluation 1ST: Improved Patient Education/Counseling: Diagnosis, Treatment, Prognosis Family Education/Counseling: No Family Present SEPSIS Sepsis Screen Physician Orders Soc Telemed Psych Consult (08/02/25 15:28) Vital Signs Date Time Temp Pulse Resp B/P (MAP) Pulse Ox O2 Delivery O2 Flow Rate FiO2 08/02/25 13:55 100.9 130 18 121/77 98 100.9 Laboratory Tests Test 08/02/25 14:22 White Blood Count 7.8 10^3/uL (4.4-10.8) Medications Medications Dose Ordered Sig/Eunice Route Start Time Stop Time Status Last Admin Dose Admin Diphenhydramine HCl 50 mg ONCE ONCE IV 08/02/25 17:00 08/02/25 17:01 DC 08/02/25 15:40 Critical Care Note Critical Care Time?: No Stability Stability form required: No Heart Score Heart Score: Heart Score Response (Comments) Value History N/A 0 EKG N/A 0 Age N/A 0 Risk Factors N/A 0 Troponin N/A 0 Total 0 I personally scribed for ETHAN EAGLE MD ([email or web address]) on 08/02/25 at 14:03. Electronically submitted by Don Hernandez ([email or web address]). I personally scribed for ETHAN EAGLE MD ([email or web address]) on 08/02/25 at 15:17. Electronically submitted by Don Hernandez ([email or web address]). ETHAN EAGLE MD Aug 02, 2025 14:03 TEJA RUSSELL MD Aug 02, 2025 21:57
[2025-08-02 14:47] LABS: Hematocrit 40.8 % (36.0-46.0); Hemoglobin 14.1 g/dL (12.2-16.2); Mean Corpuscular Hemoglobin 30.3 pg (28.0-32.0); Mean Corpuscular Volume 87.8 fL (80.0-100.0); Nucleated Red Blood Cells % 0.1 %
[2025-08-02 15:02] LABS: Potassium 4.0 mmol/L (3.5-5.1); Sodium 143 mmol/L (136-145)
[2025-08-02 15:03] LABS: Anion Gap 15 (5-15); Calcium 8.9 mg/dL (8.7-10.4); Carbon Dioxide 20 mmol/L (20-31); Chloride 108 mmol/L (98-107)
[2025-08-02 15:08] LABS: BUN/Creatinine Ratio 12.0 (10.0-20.0); Blood Urea Nitrogen 12 mg/dL (9-23)
[2025-08-02 15:09] LABS: Glucose 137 mg/dL (74-106)
[2025-08-02] MEDS ORDERED: HALOPERIDOL LACTATE 5 MG/ML INJ VIAL IM ONE (15:30)
[2025-08-02] MEDS ORDERED: MIDAZOLAM HCL 5 MG/ML-1ML VIAL IM ONE (15:30)
[2025-08-02] MEDS: diphenhydrAMINE HCL 50 MG/1 ML VL ONE (15:36)
[2025-08-02] MEDS: diphenhydrAMINE HCL 50 MG/1 ML VL IV ONE (15:40)
[2025-08-02 16:28] LABS: Acetaminophen < 2.0 UG/ML (10.0-20.0); Salicylate < 3.0 mg/dL (-30)
[2025-08-02 21:04] LABS: Benzodiazephine Screen, Urine Pos (NEGATIVE); Cocaine Screen, Urine Neg (NEGATIVE)
[2025-08-02 21:28] LABS: Amphetamine Screen, Urine Neg (NEGATIVE); Barbiturate Scree,Urine Neg (NEGATIVE); Cannabinoid Screen, Urine Pos (NEGATIVE); Opiate Scree,Urine Neg (NEGATIVE); Phencyclidine Screen, Urine Neg (NEGATIVE)
[2025-08-02 21:34] LABS: Urine Protein, UAD 1+ (Negative)
--- NOTE | 2025-08-03 00:41 | DVHINCON2 ---
Date of Service if different f: Aug 03, 2025 Time of Service: 00:02 Consult Consult Note PSYCHIATRY ED NEW CONSULT HPI: 30 yo pt with PPH of depression and anxiety presents to ED BIBA for safety, psychiatric stabilization, and possible med initiation/optimization in setting of acute THC intoxication and passive SI. Psychiatry consulted for safety evaluation and recommendations in context of current presentation Pt reports earlier today smoking an unknown substance, possibly THC (UDS + for thc only), and soon after experienced vague NC/NT VH and fleeting passive SI described as "scariest day of my life i have ever experienced". Pt now gradually achieving sobriety and is approaching baseline mental state Currently endorses some low self worth and depressed mood but denies hopelessness, helplessness, isolation, negative thoughts, or anhedonia. Denies anxiety/panic/OCD/PTSD symptoms. Also denies AVH/paranoia/catatonic/perceptual disturbances. Sleep/appetite/energy/conc relatively WNL. Adamantly denies SI/HI. No overt manic, psychotic, MDD, cognitive, dissociative, panic, OCD, PTSD, or somatic symptoms noted. Overall appears future oriented/goal directed Does have active outpt MH services established at this time (therapist only) with upcoming appt next month Currently not on any psychotropic agents for past several months due to lack of access to meds, most recently olanzapine 5 mg qhs, lexapro 10 mg qd, and abilify 5 mg qd, some hx of med noncompliance noted ELENA hx: Freq THC use including hx of abuse/intoxication, denies ETOH or IDU, moderate hx of THC dependency noted SH: Single, two children but adopted out, unemployed, some college, lives by self but currently unhoused, no/limited support system noted. Unknown trauma hx FH: Denies FH of psych hospitalizations, suicide attempts, or completed suicides PMH: No acute medical issues, hx of seizures/TBI, HIV/hep C, cardiac dz, or recent head injuries, NKDA Some hx of SI/SA x 2 via OD on Benadryl, last attempt in 2021, no hx of SIB. Several prior psych hospitalizations for SI, last admission in 2019. Denies h istory of violence, aggression, or assaultive behaviors. Denies recent hx of impulsivity, attention seeking behaviors, anger outbursts, emotional dysregulation, mood reactivity,or engaging in risky/reckless behaviors. Denies any legal problems. Does not have access to firearms. No acute safety concerns noted during encounter MSE: General Appearance/Behavior: Alert/awake; appears stated age, slightly overweight, fair grooming/hygiene; calm/polite and cooperative, fair eye contact, no PMA/PMR Speech: coherent, rrr Thought Process: L/L/GD Thought Content: Abnormal Thoughts/Perceptions: denies dissociative symptoms Homicidality / Violent Thoughts: adamantly denies HI Suicidality: adamantly denies SI Hallucinations: denies AVTH Delusions: denies paranoia, persecutory, or grandiose delusions Obsessions /compulsions: None Judgment/Insight: improved/fair Mood & Affect: "doing better" with mood-congruent, somewhat restricted/appropriate Orientation: oriented x 3 Attention/Concentration: appears intact Cognition: grossly intact Assessment: 30 yo pt with PPH of depression and anxiety presents to ED BIBA for safety, psychiatric stabilization, and possible med initiation/optimization in setting of acute THC intoxication and passive SI. Currently denies SI/HI/AVH. Linear and appears future oriented/goal directed in thought with improved J/I. Pt medically cleared Presenting MH symptoms appear more secondary to acute THC intoxication, pt also suffers from chronic THC dependency/abuse Does not presently show any signs of immediate danger to self/others or GD that would necessitate 5150 or involuntary psych admission. However offered voluntary psych hospitalization but pt declined. Also declined further ED observation/reevaluation. No acute safety concerns noted. Acute suicide/violence risk appears nonexistent to relatively low Pts symptoms should be managed safely in an outpatient setting Currently not on any psychotropic agents for past several months due to lack of access to meds, most recently olanzapine 5 mg qhs, lexapro 10 mg qd, and abilify 5 mg qd, pt requests to restart all three meds at this time and also expressed in med refill of these meds prior to ED d/c Pt also seeks consultation to assist with housing resources as pt currently unhoused Primary Diagnosis: Psychotic disorder unspecified. THC use d/o, moderate/severe. R/o SIPD Plan: Does not warrant involuntary inpatient psychiatric hospitalization or 5150 hold No acute safety concerns Pt can be safely discharged back from ED in AM Restart above current outpatient psychotropics - med compliance emphasized No med changes or additional meds needed at this time Risks/benefits/alternative treatments discussed, informed consent provided by pt Supportive tx provided, discussed safety plan with pt Emphasized LIMIT THC intake Encouraged mindfulness techniques (reading, walking, meditation, journaling, exercise, deep breathing) during times of stress rather than abuse THC Recommend SW consult to assist pt with post discharge housing assistance per pts request Pt plans to f/u with outpatient MH providers over next several weeks for ongoing therapy/med management Encouraged f/u with PCP for routine medical/preventive care Instructed pt to call/text [phone] or return to ED if MH symptoms worsen or new onset SI/HI upon discharge Pt verbalized understanding and is receptive to above tx plan This case was discussed with ED nurse/provider and all parties in agreement with above tx plan Asher Moon MD Plan discussed with: Patient ASHER MOON MD Aug 03, 2025 00:41
[2025-08-03] MEDS ORDERED: OLANZapine 5 MG TAB PO ONE (00:45)
== END 2025-08-03 13:06 | disposition left against medical advice (07) ==
LOC: EDUNIT# 13:46 → EDBD 13:46 → ER 13:56
DX: R25.3 Fasciculation (principal); H53.8 Other visual disturbances; E11.9 Type 2 diabetes mellitus without complications; F12.229 Cannabis dependence with intoxication, unspecified; F17.210 Nicotine dependence, cigarettes, uncomplicated; F32.A Depression, unspecified; F41.9 Anxiety disorder, unspecified; Z87.440 Personal history of urinary (tract) infections; Z79.899 Other long term (current) drug therapy
CPT/HCPCS: 36415; 80048; 80307; 80320; 80329; 81001; 85025; 96374; 99283; J1200